=== PATIENT | female | born 1940 | race Caucasian/White ===

== ENCOUNTER → 2016-12-22 | Outpatient (CLI) | payer MEDICARE, BC ==
--- NOTE | 2016-12-22 14:29 | US ---
EXAMINATION TYPE: US venous doppler duplex LE BI DATE OF EXAM: 12/22/2016 2:00 PM COMPARISON: Right lower extremity venous ultrasound March 08, 2013. CLINICAL HISTORY: R22.42 swelling of limb. SIDE PERFORMED: Bilateral TECHNIQUE: The lower extremity deep venous system is examined utilizing real time linear array sonog sridevi with graded compression, doppler sonography and color-flow sonography. VESSELS IMAGED: External Iliac Vein (EIV) Common Femoral Vein Deep Femoral Vein Greater Saphenous Vein * Femoral Vein Popliteal Vein Small Saphenous Vein * Proximal Calf Veins (* superficial vessels) Patient of large body habitus. Right Leg: Negative for DVT Left Leg: Negative for DVT Exam slightly suboptimal secondary to patient's large body habitus per technologist. Grayscale, color doppler, spectral doppler imaging performed of the deep veins of the lower extremities. There is no rmal flow, compressibility, vascular waveforms. IMPRESSION: No ultrasound evidence for acute DVT in either lower extremity.
--- NOTE | 2016-12-23 10:46 | ECHOF ---
Referral Reason:R6.02 sob,M79.89 LE swelling MEASUREMENTS -------- HEIGHT: 165.1 cm WEIGHT: 99.3 kg BP: RVIDd: 4.0 cm (< 3.3) IVSd: 1.1 cm (0.6 - 1.1) LVIDd: 4.5 cm (3.9 - 5.3) LVPWd: 1.1 cm (0.6 - 1.1) IVSs: 1.8 cm LVIDs: 3.0 cm LVPWs: 1.7 cm LAESV Index (A-L): 24.17 ml/m Ao Diam: 4.2 cm (2.0 - 3.7) AV Cusp: 1.6 cm (1.5 - 2.6) LA Diam: 2.6 cm (2.7 - 3.8) MV EXCURSION: 23.601 mm (> 18.000) MV EF SLOPE: 119 mm/s (70 - 150) EPSS: 0.5 cm MV E Jeffry: 0.85 m/s MV DecT: 259 ms MV A Jeffry: 0.72 m/s MV E/A Ratio: 1.19 RAP: 5.00 mmHg RVSP: 18.05 mmHg FINDINGS -------- Resting bradycardia (HR<60bpm). This was a technically difficult study with suboptimal views. The left ventricular size is normal. There is borderline concentric left ventricular hypertrophy. Overall left ventricular systolic function is normal with, an EF between 55 - 60 %. The right ventricle is moderately enlarged. The right ventricular systolic function is normal. Normal LA size by volume 22+/-6 ml/m2. The right atrium is normal in size. 1.5mg of Definity was utilized for enhancement of images Aortic valve is trileaflet and is mildly thickened. Trace amount of aortic regurgitation. There is no evidence of aortic stenosis. The mitral valve leaflets are mildly thickened. There is trace mitral regurgitation. Trace tricuspid regurgitation present. Right ventricular systolic pressure is normal at < 35 mmHg. There is no evidence of pulmonary hypertension. Moderate pulmonic regurgitation. The aortic root size is normal. Normal inferior vena cava with normal inspiratory collapse consistent with estimated right atrial pressure of 5 mmHg. The pericardium is normal. There is no pericardial effusion. CONCLUSIONS -------- 1. Resting bradycardia (HR<60bpm). 2. Trace amount of aortic regurgitation. 3. The mitral valve leaflets are mildly thickened. 4. There is trace mitral regurgitation. 5. Trace tricuspid regurgitation present. 6. Right ventricular systolic pressure is normal at < 35 mmHg. 7. There is no evidence of pulmonary hypertension. 8. Moderate pulmonic regurgitation. 9. The aortic root size is normal. 10. There is no pericardial effusion. 11. This was a technically difficult study with suboptimal views. 12. The left ventricular size is normal. 13. There is borderline concentric left ventricular hypertrophy. 14. Overall left ventricular systolic function is normal with, an EF between 55 - 60 %. 15. The right ventricle is moderately enlarged. 16. Normal LA size by volume 22+/-6 ml/m2. 17. 1.5mg of Definity was utilized for enhancement of images 18. Aortic valve is trileaflet and is mildly thickened. FLASH DESIGNER: Hamlet Thorne RDCS
== END | disposition home or self-care (01) ==
LOC: RADUSMAIN 12:57
PROVIDERS: ATTEND Family Medicine
DX: I08.0 Rheumatic disorders of both mitral and aortic valves (principal); R00.1 Bradycardia, unspecified; R22.43 Localized swelling, mass and lump, lower limb, bilateral; Z88.2 Allergy status to sulfonamides; Z88.5 Allergy status to narcotic agent
CPT/HCPCS: 93970; C8929; Q9957; 93306

== ENCOUNTER → 2017-01-03 | Outpatient (CLI) | payer MEDICARE, BC ==
--- NOTE | 2017-01-03 07:50 | US ---
EXAMINATION TYPE: US carotid duplex BILAT DATE OF EXAM: 01/03/2017 COMPARISON: NONE CLINICAL HISTORY: 76-year-old female with Facial Numbness R20.2. Left facial numbness . TECHNIQUE: Carotid duplex ultrasound examination. Indirect Doppler criteria was utilized. FINDINGS: The left ICA is tortuous. Very minimal atherosclerotic changes are noted at the bifurcations. EXAM MEASUREMENTS: RIGHT: Peak Systolic Velocity (PSV) cm/sec ----- Right CCA: 83.3 ----- Right ICA: 96.5 ----- Right ECA: 111.9 ICA/CCA ratio: 1.2 RIGHT: End Diastole cm/sec ----- Right CCA: 22.7 ----- Right ICA: 32.6 ----- Right ECA: 20.5 LEFT: Peak Systolic Velocity (PSV) cm/sec ----- Left CCA: 75.6 ----- Left ICA: 74.7 ----- Left ECA: 103.5 ICA/CCA ratio: 1.0 LEFT: End Diastole cm/sec ----- Left CCA: 23.2 ----- Left ICA: 28.5 ----- Left ECA: 23.2 VERTEBRALS (direction of flow): Right Vertebral: Antegrade Left Vertebral: Antegrade Rhythm: Normal IMPRESSION: No hemodynamically significant stenosis appreciated in either internal carotid artery. Criteria for Assigning % of Stenosis / Diameter reduction (Estimation based on the indirect measurements of the internal carotid artery velocities (ICA PSV). 1. Normal (no stenosis)=ICA PSV < 125 cm/s: ratio < 2.0: ICA EDV<40 cm/s. 2. Less than 50% stenosis=ICA PSV < 125 cm/s: ratio < 2.0: ICA EDV<40 cm/s. 3. 50 to 69% stenosis=ICA PSV of 125 to 230 cm/s: ration 2.0 ? 4.0: ICA EDV 40-100 cm/s. 4. Greater than 70% stenosis to near occlusion= ICA PSV > 230 cm/s: ratio > 4.0: ICA EDV > 100 cm/s. 5. Near occlusion= ICA PSV velocities may be low or undetectable: variable ratio and ICA EDV. 6. Total occlusion=unable to detect flow.
--- NOTE | 2017-01-03 10:23 | MR ---
EXAMINATION TYPE: MR brain wo con DATE OF EXAM: 01/03/2017 COMPARISON: NONE HISTORY: facial numbness, dyspnea TECHNIQUE: Multiplanar, multisequence images of the brain and brainstem is performed without intravenous contras t. FINDINGS: Diffusion weighted images demonstrate no evidence of a recent infarct or other diffusion ab normality. There is no extra-axial fluid collection. Few foci of T2/FLAIR hyperintensity are scatter ed throughout the periventricular and subcortical white matter. The ventricular system and cisternal spaces are normal in size and appearance. The brain volume is age appropriate. Midline structures demonstrate normal morphology other than a partially empty sella turcica. The hobbies and crafts sales representative niocervical junction appears within normal limits. Post contrast images demonstrate no abnormal enha ncement. The dural venous sinuses appear patent. The visualized sinuses are clear and the globes are intact. IMPRESSION: 1. No evidence of acute infarct or intracranial hemorrhage. 2. Mild burden of nonspecific white matter changes, likely on the basis of chronic microangiopathy.
== END | disposition home or self-care (01) ==
LOC: RADUSWWP 06:50
PROVIDERS: ATTEND Family Medicine
DX: R90.82 White matter disease, unspecified (principal); R20.0 Anesthesia of skin; R06.00 Dyspnea, unspecified; Z88.2 Allergy status to sulfonamides; Z88.5 Allergy status to narcotic agent
CPT/HCPCS: 70551; 93880

== ENCOUNTER → 2018-03-16 | Outpatient (CLI) | payer MEDICARE, BC ==
--- NOTE | 2018-03-16 14:42 | BD ---
EXAMINATION TYPE: Axial Bone Density DATE OF EXAM: 03/16/2018 CLINICAL HISTORY: Height: 63.5 Weight: 221 pounds FRAX RISK QUESTIONS: Alcohol (3 or more units per day): no Family History (Parent hip fracture): no Glucocorticoids (More than 3mos): yes (Ex: prednisone, prednisolone, methylprednisolone, dexamethasone, and hydrocortisone). History of Fracture in Adulthood: no Secondary Osteoporosis: 1. Type 1 Diabetes: no 2. Hyperthyroidism: no 3. Menopause before 45: yes, hysterectomy 4. Malnutrition: no 5. Chronic liver disease: no Rheumatoid Arthritis: no Current Tobacco Use: no RISK FACTORS HISTORY OF: Family History of Osteoporosis: possibly maternal great aunt Active: somewhat Diet low in dairy products/other sources of calcium: at least one serving a day "most of the time" Postmenopausal woman: yes Take estrogen and/or progesterone medications: not now How long: about 4 months Lost more than 2 inches in height since high school: unsure, states height was about 66 inches at one time Frequent falls: no Poor Health: patient does not feel in good health Hyperparathyroidism: no Adrenal Insufficiency: no MEDICATIONS: Prednisone or other steroids: yes How Long: about 4 years Thyroid Medications: no Osteoporosis Medications: no Additional Medications: Vitamin D Additional History: knee replacement, hx skin CA, back injections for pain, "heart problem" EXAM MEASUREMENTS: Bone mineral densitometry was performed using the Firma[employer] System. Bone mineral density as measured about the Lumbar spine is: ----- L1-L4(G/cm2): 1.412 T Score Values are as follows: ----- L2: 2.5 ----- L3: 2.0 ----- L4: 1.1 ----- L1-L4: 1.9 Bone mineral density not previously done at this facility; done elsewhere Bone mineral density about the R hip (g/cm2): 0.958 Bone mineral density about the L hip (g/cm2): 0.904 T Score values are as follows: -----R Neck: -0.6 -----L Neck: -1.0 -----R Total: 0.0 -----L Total: -0.1 Bone mineral density not previously done at this facility; done elsewhere IMPRESSION: No evidence for osteoporosis or osteopenia. NOTE: T-SCORE=SD OF THE YOUNG ADULT MEAN.
--- NOTE | 2018-03-17 14:19 | MM ---
Reason for exam: screening (asymptomatic). Last mammogram was performed 1 year and 4 months ago. Physical Findings: A clinical breast exam by your physician is recommended on an annual basis and results should be correlated with mammographic findings. MG 3D Screening Mammo W/Cad Bilateral CC and MLO view(s) were taken. Prior study comparison: November 03, 2016, mammogram. September 12, 2015, mammogram. There are scattered fibroglandular densities. No suspicious abnormality. No significant changes when compared with prior studies. ASSESSMENT: Negative, BI-RAD 1 RECOMMENDATION: Routine screening mammogram of both breasts in 1 year.
== END | disposition home or self-care (01) ==
LOC: RADMAMWWP 11:39
PROVIDERS: ATTEND Family Medicine
DX: Z12.31 Encounter for screening mammogram for malignant neoplasm of breast (principal); Z13.820 Encounter for screening for osteoporosis
CPT/HCPCS: 77063; 77067; 77080

== ENCOUNTER → 2020-01-16 | Outpatient (CLI) | payer MEDICARE, BC | END | disposition home or self-care (01) | LOC: RADMRIMAIN 17:44 | PROVIDERS: ATTEND Family Medicine | DX: Z53.9 Procedure and treatment not carried out, unspecified reason (principal) ==

== ENCOUNTER 2021-02-10 10:55 | Day surgery (SDC) | payer MEDICARE, BC ==
[2021-02-09 09:22] VITALS: BMI 36.6
[~2021-02-10 10:55] MED LIST: ALPRAZolam 0.25 MG TAB PO PRN; ALPRAZolam 0.5 MG TAB PO PRN; ASPIRIN 325 MG TAB PO STA; ATORVASTATIN 80 MG TAB PO STA; NITROGLYCERIN SL TABS 0.4 MG TAB SUBLINGUAL PRN; SODIUM CHLORIDE 0.9% 1,000 ML in EMPTY BAG 1 BAG IV SCH
[2021-02-10 11:42] VITALS: RESP 18; TEMP 98.6
[2021-02-10] MEDS ORDERED: VERAPAMIL 2.5 MG/ML 2 ML AMP ONE (13:10)
[2021-02-10] MEDS ORDERED: LIDOCAINE 1% INJ 10MG/ML (20 ML MDV) ONE (13:10)
[2021-02-10] MEDS ORDERED: fentaNYL (PF) 50 MCG/ML 2 ML AMP ONE (13:17)
[2021-02-10] MEDS ORDERED: LIDOCAINE 1% INJ 10MG/ML (20 ML MDV) SQ ONE (13:17)
[2021-02-10] MEDS ORDERED: fentaNYL (PF) 50 MCG/ML 2 ML AMP IV ONE ×2 (13:19)
[2021-02-10] MEDS ORDERED: MIDAZOLAM 2 MG/2 ML VIAL IV ONE (13:19)
[2021-02-10] MEDS ORDERED: VERAPAMIL SYRINGE (5 MG/10 ML) INTRAARTER ONE (13:24)
[2021-02-10] MEDS ORDERED: HEPARIN SODIUM 1,000 UN/ML (10ML VL) ONE (13:37)
[2021-02-10] MEDS ORDERED: IOPAMIDOL-370 125ML BTL INJ ONE (13:48)
[2021-02-10] MEDS ORDERED: RX INFO: IV CONTRAST WAS GIVEN 1 EACH MISC MISCELLANE PRN (13:53)
[2021-02-10 13:59] LABS: O2 Sat Blood Gas 88.5 %
[2021-02-10] MEDS ORDERED: SODIUM CHLORIDE 0.9% 1,000 ML IV SCH (14:00)
[2021-02-10 14:02] LABS: O2 Sat Blood Gas 63.1 %
[2021-02-10 14:09] LABS: O2 Sat Blood Gas 62.6 %
[2021-02-10 17:04] VITALS: BP 146/82; PULSE 67
--- NOTE | 2021-02-10 20:42 | CC ---
CARDIAC CATHETERIZATION REPORT Mrs. Donahue is a 80-year-old female who presented with symptoms of progressive dyspnea and worsening peripheral edema. Her myocardial perfusion imaging that revealed evidence of inducible ischemia involving the anterior wall. In view of that, recommendation regarding cardiac catheterization. The procedure as well as the risks and the complications were discussed with the patient who is in full understanding and agreement. PROCEDURE DESCRIPTION: Patient was brought to the label sewer in a fasting, semi-sedated state after receiving fentanyl and Benadryl and achieving moderate conscious sedated state. Using Xylocaine anesthesia and Seldinger technique, a 6-Polish sheath was introduced in the right radial artery. The right basilic vein catheter was exchanged to a 6-Polish sheath and subsequently right heart catheterization was performed using Auburn-Kenn catheter. Multiple pressure and samples were obtained. Cardiac output by thermodilution was calculated. Following that, selective right and left coronary angiography performed using 5-Polish 3.5 bend right and left Judkin's catheter. Multiple views of the coronary arteries including hemiaxial views were obtained. The 5-Polish tight pigtail catheter was introduced into the left ventricle and left ventricular end- diastolic pressure was calculated. Following that, catheter and sheath were removed. Hemostasis was obtained with deployment of a TR band and compression of the right brachial area. There was no immediate complication. The patient received 5000 units of intravenous heparin as well as intra-arterial verapamil. FINDINGS: LEFT MAIN: This is a large-sized vessel trifurcating into left circumflex, left anterior descending coronary artery, and ramus intermedius. Left main coronary artery has no evidence of high-grade stenosis. LEFT ANTERIOR DESCENDING CORONARY ARTERY: Left anterior descending artery is a large- sized vessel reaching toward the apex with a wraparound apex segment giving rise to a small diagonal branch. The left anterior descending artery as well as branches have no evidence of obstructive coronary artery disease. LEFT CIRCUMFLEX: This is a nondominant vessel giving rise to one obtuse marginal branch. The left circumflex as well as branches have no evidence of obstructive coronary artery disease. RAMUS INTERMEDIUS: This is a large-sized vessel reaching to the apical lateral wall. The ramus intermedius as well as branches have no evidence of obstructive coronary artery disease. RIGHT CORONARY ARTERY: This is a large dominant vessel bifurcating into PDA and posterolateral segment and branches. The right coronary artery as well as branches have no evidence of obstructive coronary artery disease. HEMODYNAMICS: The pulmonary artery systolic pressure of 42-44 with a diastolic of 12 and a mean of 23 mmHg. Pulmonary capillary wedge pressure A-wave of 8, V-wave of 6 with a mean of 4 mmHg. Right ventricular systolic pressure of 44 with an end-diastolic of 15 mmHg. Right atrial A-wave of 8 and V-wave of 6 with a mean of 4 mmHg. There was no gradient across the aortic valve. The left ventricular end-diastolic pressure is 10-14 mmHg. Cardiac output by thermodilution 4.2 L/minute. Cardiac output by Madan 5.98 L/minute. Arterial sat 89%, PA sat 63%, RA sat 63%. CONCLUSION: 1. Normal coronary arteries. 2. Mild pulmonary hypertension. RECOMMENDATIONS: In view of findings and anatomy, I recommend continued medical therapy with aggressive coronary risk modifications that have been initiated. Those findings and recommendations were discussed with the patient her family, and they are full understanding and agreement. Duration of sedation is 29 minutes. MMANTWONL / CHERRIN: [id number] / MTDSaran
[2021-02-10] MEDS ORDERED: MONTELUKAST 10 MG TAB PO SCH (21:00)
[2021-02-11] MEDS ORDERED: LOSARTAN 25 MG TAB PO SCH (09:00)
== END 2021-02-10 17:04 | disposition home or self-care (01) ==
LOC: CATHCVL 10:55
PROVIDERS: ATTEND Internal Medicine Interventional Cardiology
DX: I27.20 Pulmonary hypertension, unspecified (principal)
CPT/HCPCS: 93460; 85018; 82810; C1894; C1751; C1769; J2250; J2001; J3010; J1644; Q9967

== ENCOUNTER → 2021-10-29 | Outpatient (CLI) | payer MEDICARE, BC ==
--- NOTE | 2021-10-30 08:22 | MM ---
Reason for Exam: Screening (asymptomatic). Last mammogram was performed 3 year(s) and 8 month(s) ago. Patient History: Menarche at age 11. First Full-Term at age 20. Maternal aunt had breast cancer, age 70. Risk Values: Rox 5 year model risk: 1.4%. NCI Lifetime model risk: 2.5%. Prior Study Comparison: 09/12/2015 Screening Mammogram, Unknown. 11/03/2016 Screening Mammogram, Unknown. 03/16/2018 Bilateral Screening Mammogram, [facility]. Tissue Density: The breast tissue is almost entirely fat. Findings: Analyzed By CAD. There is no suspicious group of microcalcifications or new suspicious mass in either breast. Overall Assessment: Negative, BI-RAD 1 Management: Screening Mammogram of both breasts in 1 year. A clinical breast exam by your physician is recommended on an annual basis and results should be correlated with mammographic findings. Electronically signed and approved by: Brent Veras DO
== END | disposition home or self-care (01) ==
LOC: RADMAMWWP 13:07
PROVIDERS: ATTEND Family Medicine
DX: Z12.31 Encounter for screening mammogram for malignant neoplasm of breast (principal); Z80.3 Family history of malignant neoplasm of breast
CPT/HCPCS: 77063; 77067

== ENCOUNTER → 2022-11-12 | Outpatient (CLI) | payer MEDICARE, BC ==
[2022-11-12 16:51] LABS: Blood Urea Nitrogen 28.6 mg/dL (9.0-27.0); Carbon Dioxide 33.3 mmol/L (21.6-31.8); Chloride 98 mmol/L (96-109); Potassium 4.1 mmol/L (3.5-5.5); Sodium 141 mmol/L (135-145)
== END | disposition home or self-care (01) ==
LOC: LABWHC1 10:46
PROVIDERS: ATTEND Internal Medicine Interventional Cardiology
DX: I48.11 Longstanding persistent atrial fibrillation (principal)
CPT/HCPCS: 36415; 80051; 82565; 84520

== ENCOUNTER → 2022-11-23 | Day surgery (SDC) | payer MEDICARE, BC ==
[2022-11-16 12:42] VITALS: BMI 31.6
[~2022-11-23] MED LIST changes: -ALPRAZolam 0.25 MG TAB PO PRN; -ALPRAZolam 0.5 MG TAB PO PRN; +AMIODARONE 200 MG TAB PO SCH; +APIXABAN 5 MG TAB PO SCH; -ASPIRIN 325 MG TAB PO STA; -ATORVASTATIN 80 MG TAB PO STA; +BENZOCAINE SPRAY 1 CAN TOPICAL ONE; +BUDESONIDE 0.5 MG/2 ML NEBU INHALATION SCH; +FUROSEMIDE 20 MG TAB PO SCH; +IPRATROPIUM-ALBUTEROL 3 ML NEB INHALATION SCH; +LACTATED RINGERS 1,000 ML IV ONE; +LIDOCAINE 2% INJ 20 MG/ML (2 ML VIAL) ONE; +METOPROLOL TARTRATE 50 MG TAB PO SCH; +MONTELUKAST 10 MG TAB PO SCH; -NITROGLYCERIN SL TABS 0.4 MG TAB SUBLINGUAL PRN; +POTASSIUM CHLORIDE ER 10 MEQ TAB.ER.PRT PO SCH; +PROPOFOL 10 MG/ML 20 ML VIAL IV ONE; +SODIUM CHLORIDE 0.9% 1,000 ML IV SCH; -SODIUM CHLORIDE 0.9% 1,000 ML in EMPTY BAG 1 BAG IV SCH
--- NOTE | 2022-11-23 09:37 | P.PCN ---
Date of Procedure: 11/23/22 Description of Procedure: Indication: Atrial fibrillation Procedure Description: After explaining the procedure to the patient, it's risk and complications, blood pressure, heart rate and O2 saturation were monitored. The throat was sprayed with Cetacaine. Patient received sedation per anesthesia department. The probe was introduced into the esophagus without difficulty. Images were obtained. Following that, the probe was removed. There was no immediate complication. Findings: Left atrial is dilated, right atrium is dilated. Left atrial appendage is normal. Left ventricle systolic function is severely impaired with ejection fraction of 25-30% is global hypokinesis. The aortic valve reveals fib rocalcific changes of the aortic cusps was preserved opening, mitral annulus calcification was noted. Descending thoracic aorta revealed mild calcifications. No pericardial effusion was noted. Contrast bubble study revealed no shunting across the intra-atrial septum. Doppler: Pulse wave and color Doppler were obtained, in revealed moderate mitral with mild tricuspid and aortic regurgitation, there was no shunting by color Doppler study Conclusion: 1. Biatrial enlargement with normal appearance of the left atrial appendage 2. Severely impaired left ventricle systolic function was global hypokinesis 3. Moderate mitral with mild tricuspid regurgitation and mild aortic regurgitation 4. Mild atherosclerotic changes of the descending thoracic aorta 5. No shunting across the intra-atrial septum Cardioversion: After obtaining KELLY and sedated state. Anesthesia department synchronized biphasic cardioversion using 150 J and subsequently 200 J was successful in restoring sinus mechanism, there was no immediate complications.
[2022-11-23 09:47] VITALS: TEMP 98
[2022-11-23 10:21] VITALS: RESP 18
[2022-11-23 10:45] VITALS: BP 134/61; PULSE 40
== END | disposition home or self-care (01) ==
LOC: OR 07:45
PROVIDERS: ATTEND Internal Medicine Interventional Cardiology
DX: I48.91 Unspecified atrial fibrillation (principal); I08.2 Rheumatic disorders of both aortic and tricuspid valves; I10 Essential (primary) hypertension; Z88.2 Allergy status to sulfonamides; Z79.01 Long term (current) use of anticoagulants; Z79.899 Other long term (current) drug therapy
CPT/HCPCS: 94640; 93312; 93320; 93325; 92960; J2704; J2001

== ENCOUNTER 2022-12-10 10:43 | Emergency (ER) | payer MEDICARE, BC ==
--- NOTE | 2022-12-10 11:09 | ED ---
Head Injury HPI - General Chief complaint: Head Injury Stated complaint: Fall Time Seen by Provider: 12/10/22 10:52 Source: patient, RN notes reviewed Mode of arrival: ambulatory Limitations: no limitations - History of Present Illness Initial comments: This is an 82-year-old female who presents to the emergency department for a head injury. Patient states that she was putting up decorations when she tripped and fell, hitting her head on the coffee table. States that she hit the left side of her head. Denies any loss of consciousness. She does take Eliquis for atrial fibrillation. She does currently have a headache, however she took Tylenol prior to arrival which was helpful. Denies any associated nausea. States that she called the nurse with [facility], who advised she come to the emergency department for evaluation. Denies any fevers, chills, sore throat, cough, dyspnea, chest pain, palpitations, abdominal pain, nausea, vomiting, or diarrhea. MD Complaint: head injury - Related Data Home Medications Medication Instructions Recorded Confirmed Budesonide [Pulmicort] 0.5 mg INHALATION BID 02/09/21 11/16/22 Furosemide [Lasix] 40 mg PO BID 02/09/21 11/16/22 Ipratropium-Albuterol Nebulize 3 ml INHALATION QID 02/09/21 11/16/22 [Duoneb 0.5 mg-3 mg/3 ml Soln] Meloxicam [Mobic] 15 mg PO DAILY 02/09/21 11/16/22 Montelukast [Singulair] 10 mg PO HS 02/09/21 11/16/22 Potassium Chloride 10 meq PO DIRECTED 02/09/21 11/16/22 Apixaban [Eliquis] 5 mg PO BID 11/16/22 11/16/22 Metoprolol Tartrate [Lopressor] 50 mg PO BID 11/16/22 11/16/22 Previous Rx's Medication Instructions Recorded Amiodarone [Cordarone] 200 mg PO DAILY #0 11/23/22 Allergies/Adverse reactions: Allergies Allergy/AdvReac Type Severity Reaction Status Date / Time Sulfa (Sulfonamide Allergy Unknown skin red Verified 12/10/22 10:48 Antibiotics) like a sunburn Review of Systems ROS Statement: Those systems with pertinent positive or pertinent negative responses have been documented in the HPI. ROS Other: All systems not noted in ROS Statement are negative. Past Medical History Past Medical History: Atrial Fibrillation, Asthma, Cancer, COPD, Hypertension, Osteoarthritis (OA) Additional Past Medical History / Comment(s): basal & melanoma skin cancer, spot on kidney (had a little radiation because it can't be bx'd)-watched by oncologist, oxygen at 2 L at HS History of Any Multi-Drug Resistant Organisms: None Reported Past Surgical History: Appendectomy, Cholecystectomy, Joint Replacement, Tonsillectomy Additional Past Surgical History / Comment(s): rectocele and cystocele, total right knee, cataracts Past Anesthesia/Blood Transfusion Reactions: No Reported Reaction, Motion Sickness Past Psychological History: No Psychological Hx Reported Smoking Status: Former smoker Past Alcohol Use History: None Reported Past Drug Use History: None Reported - Past Family History Son(s) Family Medical History: Cancer Additional Family Medical History / Comment(s): throat cancer General Exam Limitations: no limitations General appearance: alert, in no apparent distress Head exam: Present: other (Hematoma to the left parietal region. No overlying abrasions or lacerations.) Eye exam: Present: normal appearance, PERRL, EOMI. Absent: scleral icterus, conjunctival injection, periorbital swelling Respiratory exam: Present: normal lung sounds bilaterally. Absent: respiratory distress, wheezes, rales, rhonchi, stridor Cardiovascular Exam: Present: regular rate, normal rhythm, normal heart sounds. Absent: systolic murmur, diastolic murmur, rubs, gallop, clicks Neurological exam: Present: alert, oriented X3, CN II-XII intact Psychiatric exam: Present: normal affect, normal mood Skin exam: Present: warm, dry, intact, normal color. Absent: rash Course Vital Signs 12/10/22 12/10/22 10:46 12:41 Temperature 98.4 F 98.2 F Pulse Rate 52 L 61 Respiratory 18 18 Rate Blood Pressure 139/63 131/87 O2 Sat by Pulse 99 99 Oximetry Medical Decision Making - Medical Decision Making This is an 82-year-old female who presents to the emergency department for a head injury. Was pt. sent in by a medical professional or institution? @ -No Did you speak to anyone other than the patient for history? @ -No Did you review nursing and triage notes? @ -Yes, and I agree, it is accurate with regards to the patient's symptoms. Were old charts reviewed? @ -No Differential Diagnosis? @ -Differential Diagnosis Head Injury: Contusion, hematoma, intracranial hemorrhage, skull fracture, whiplash, concussion, this is not meant to be an all-inclusive list. EKG interpreted by me (3pts min.)? @ -Not obtained X-rays interpreted by me (1pt min.)? @ -Not obtained CT interpreted by me (1pt min.)? @ -Computed tomography scan of the brain and c-spine obtained. My interpretation identifies no evidence of an acute intracranial hemorrhage, skull fracture, or cervical spine fracture. U/S interpreted by me (1pt. min.)? @ -Not obtained What testing was considered but not performed? (CT, X-rays, U/S, labs)? Why? @ -None What meds were considered but not given? Why? @ -None Did you discuss the management of the patient with other professionals? @ -No Did you reconcile home meds? @ -No Was smoking cessation discussed for >3mins.? @ -No Was critical care preformed (if so, how long)? @ -No Were there social determinants of health that impacted care today? How? (Homelessness, low income, unemployed, alcoholism, drug addiction, transportation, low edu. Level, literacy, decrease access to med. care, [facility], rehab)? @ -No Was there de-escalation of care discussed even if they declined? (Discuss DNR or withdrawal of care, Hospice)? @ -No What co-morbidities impacted this encounter? (DM, HTN, Smoking, COPD, CAD, Cancer, CVA, Hep., AIDS, mental health diagnosis, sleep apnea, morbid obesity)? @ -Atrial fibrillation Was patient admitted / discharged? @ -Discharged. Because the patient is on Eliquis, CT scan of the brain obtained revealing no acute findings. Patient declined the need for any pain medication in the emergency department. Advised Tylenol as needed for pain relief at home and follow up with her primary care provider. Undiagnosed new problem with uncertain prognosis? @ -None Drug Therapy requiring intensive monitoring for toxicity (Heparin, Nitro, Insulin, Cardizem)? @ -None Were any procedures done? @ -None Diagnosis/symptom? @ -Closed head injury Acute, or Chronic, or Acute on Chronic? @ -Acute Uncomplicated (without systemic symptoms) or Complicated (systemic symptoms)? @ -Uncomplicated Side effects of treatment? @ -None Exacerbation, Progression, or Severe Exacerbation] @ -Not applicable Poses a threat to life or bodily function? @ -No Return precautions reviewed in depth, the patient is instructed to return to the emergency department with any new, worsening, or concerning symptoms. Patient verbalized understanding. This case was discussed in detail with the attending ED physician, Dr. Dixon. Presentation, findings, and treatment plan discussed in detail as well. - Radiology Data Radiology results: report reviewed, image reviewed Disposition Clinical Impression: Closed head injury, Hematoma of scalp Disposition: HOME SELF-CARE Instructions (If sedation given, give patient instructions): Head Injury (ED) Additional Instructions: Return to the emergency department with any new, worsening, or concerning symptoms. Continue to take Tylenol as needed for pain relief. Follow up with your primary care provider in 1-2 days. Is patient prescribed a controlled substance at d/c from ED?: No Referrals: Martín Clark DO [Primary Care Provider] - 1-2 days
--- NOTE | 2022-12-10 12:02 | CT ---
EXAMINATION TYPE: CT brain laina enrique DATE OF EXAM: 12/10/2022 COMPARISON: None HISTORY: Fall on thinners CT DLP: 1426.[address] of the brain was performed. The ventricles, basal cisterns and sulci overlying the cerebral convexities demonstrate mild enlargem ent. There is no evidence for intracranial hemorrhage or sulcal effacement. There is decreased attenuatio n about the periventricular white matter and deep white matter of both cerebral hemispheres, compatib le with chronic small vessel ischemia. No mass effects are seen. If symptoms persist consider MRI. Osseous calvarium is intact. Left parietal-occipital scalp hematoma. IMPRESSION: 1. Age related atrophic and chronic small vessel ischemic change without acute intracranial process seen at this time. CT Cervical Spine: Unenhanced CT of the cervical spine was performed with bone and soft tissue window settings submitted . Coronal and sagittal reconstruction is obtained. There is normal alignment and prevertebral soft tissues. No evidence for acute cervical fracture . Scattered degenerative disc disease and spondylosis. Biapical scarring. IMPRESSION: 1. No evidence for acute fracture or subluxation of the cervical spine.
[2022-12-10 15:27] VITALS: BP 131/87; PULSE 61; RESP 18; TEMP 98.2
== END 2022-12-10 12:45 | disposition home or self-care (01) ==
LOC: EC 10:43
DX: S00.03XA Contusion of scalp, initial encounter (principal); I10 Essential (primary) hypertension; J45.909 Unspecified asthma, uncomplicated; I48.91 Unspecified atrial fibrillation; Z79.01 Long term (current) use of anticoagulants; Z79.51 Long term (current) use of inhaled steroids; Z79.899 Other long term (current) drug therapy; Z88.2 Allergy status to sulfonamides; Z87.891 Personal history of nicotine dependence; W01.190A Fall on same level from slipping, tripping and stumbling with subsequent striking against furniture, initial encounter
CPT/HCPCS: 70450; 72125; 99283

== ENCOUNTER → 2022-12-27 | Outpatient (CLI) | payer MEDICARE, BC ==
[2022-12-27 13:30] LABS: African American GFR (CKD) 72 (>60 ml/min/1.73 sqM); Blood Urea Nitrogen 25 mg/dL (7-17); Calcium 8.9 mg/dL (8.4-10.2); Chloride 97 mmol/L (98-107); Glucose 97 mg/dL (74-99); Non-African American GFR(CKD) 63 (>60 ml/min/1.73 sqM); Potassium 4.5 mmol/L (3.5-5.1); Sodium 140 mmol/L (137-145)
[2022-12-27 13:36] LABS: NT-Pro-B-Type Natriuretic Pept 850 pg/mL
[2022-12-27 13:37] LABS: Anion Gap 8 mmol/L; Carbon Dioxide 35 mmol/L (22-30)
== END | disposition home or self-care (01) ==
LOC: LABWHC1 12:14
PROVIDERS: ATTEND Internal Medicine Interventional Cardiology
DX: I42.8 Other cardiomyopathies (principal); I50.22 Chronic systolic (congestive) heart failure
CPT/HCPCS: 36415; 80048; 83880

== ENCOUNTER 2023-02-13 07:14 | Inpatient (IN) | payer MEDICARE, BC ==
[2023-02-13] MEDS ORDERED: IPRATROPIUM-ALBUTEROL 3 ML NEB INHALATION STA (07:28)
--- NOTE | 2023-02-13 07:30 | ED ---
General Adult HPI - General Chief complaint: Shortness of Breath Stated complaint: Dyspnea Time Seen by Provider: 02/13/23 07:22 Source: patient, RN notes reviewed Mode of arrival: wheelchair Limitations: no limitations - History of Present Illness Initial comments: Patient is a pleasant 82-year-old female presenting to the emergency Department with complaints of shortness of breath. Onset of symptoms was last night. Patient does have history of COPD. Patient does have some leg swelling however this is a chronic problem for her. No calf pain. Patient denies chest pain. Patient does have some discomfort of her left shoulder region. No significant cough. No fever. - Related Data Home Medications Medication Instructions Recorded Confirmed Budesonide [Pulmicort] 0.5 mg INHALATION BID 02/09/21 11/16/22 Furosemide [Lasix] 40 mg PO BID 02/09/21 11/16/22 Ipratropium-Albuterol Nebulize 3 ml INHALATION QID 02/09/21 11/16/22 [Duoneb 0.5 mg-3 mg/3 ml Soln] Meloxicam [Mobic] 15 mg PO DAILY 02/09/21 11/16/22 Montelukast [Singulair] 10 mg PO HS 02/09/21 11/16/22 Potassium Chloride 10 meq PO DIRECTED 02/09/21 11/16/22 Apixaban [Eliquis] 5 mg PO BID 11/16/22 11/16/22 Metoprolol Tartrate [Lopressor] 50 mg PO BID 11/16/22 11/16/22 Previous Rx's Medication Instructions Recorded Amiodarone [Cordarone] 200 mg PO DAILY #0 11/23/22 Allergies Allergy/AdvReac Type Severity Reaction Status Date / Time Sulfa (Sulfonamide Allergy Unknown skin red Verified 02/13/23 07:18 Antibiotics) like a sunburn Review of Systems ROS Statement: Those systems with pertinent positive or pertinent negative responses have been documented in the HPI. ROS Other: All systems not noted in ROS Statement are negative. Constitutional: Denies: fever Eyes: Denies: eye pain ENT: Denies: ear pain Respiratory: Reports: as per HPI, dyspnea Cardiovascular: Denies: chest pain Endocrine: Reports: fatigue Gastrointestinal: Denies: abdominal pain Genitourinary: Denies: dysuria Past Medical History Past Medical History: Atrial Fibrillation, Asthma, Cancer, COPD, Hypertension, Osteoarthritis (OA) Additional Past Medical History / Comment(s): basal & melanoma skin cancer, spot on kidney (had a little radiation because it can't be bx'd)-watched by oncologist, oxygen at 2 L at HS History of Any Multi-Drug Resistant Organisms: None Reported Past Surgical History: Appendectomy, Cholecystectomy, Joint Replacement, Tonsillectomy Additional Past Surgical History / Comment(s): rectocele and cystocele, total right knee, cataracts Past Anesthesia/Blood Transfusion Reactions: No Reported Reaction, Motion Si ckness Past Psychological History: No Psychological Hx Reported Smoking Status: Former smoker Past Alcohol Use History: None Reported Past Drug Use History: None Reported - Past Family History Son(s) Family Medical History: Cancer Additional Family Medical History / Comment(s): throat cancer General Exam Limitations: no limitations General appearance: alert Head exam: Present: normocephalic Eye exam: Present: normal appearance Neck exam: Present: normal inspection Respiratory exam: Present: wheezes, rales Cardiovascular Exam: Present: regular rate, normal rhythm, systolic murmur GI/Abdominal exam: Present: soft. Absent: tenderness Extremities exam: Present: pedal edema. Absent: calf tenderness Neurological exam: Present: alert Psychiatric exam: Present: normal affect, normal mood Skin exam: Present: normal color Course Vital Signs 02/13/23 02/13/23 02/13/23 07:16 07:43 07:59 Temperature 98.9 F Pulse Rate 71 51 L 52 L Respiratory 20 22 Rate Blood Pressure 130/82 149/76 O2 Sat by Pulse 87 L 95 Oximetry 02/13/23 08:10 Temperature Pulse Rate 56 L Respiratory Rate Blood Pressure O2 Sat by Pulse Oximetry EKG Findings - EKG Results: EKG: interpreted by ERMD (Left axis. Right bundle branch block. Septal Q waves. Nonspecific ST-T. Previous EKG reviewed dated 11/24/22.), sinus rhythm EKG shows: bradycardia Medical Decision Making - Medical Decision Making Was pt. sent in by a medical professional or institution (, PA, FIELD TALENT QUALIFICATION SPECIALIST, urgent care, hospital, or alf...) When possible be specific @ -No Did you speak to anyone other than the patient for history (EMS, parent, family, police, friend...)? What history was obtained from this source @ -Family is present and helps provide history of patient having a recent sleep study. Did you review nursing and triage notes (agree or disagree)? Why? @ -I reviewed and agree with nursing and triage notes Were old charts reviewed (outside hosp., previous admission, EMS record, old EKG, old radiological studies, urgent care reports/EKG's, alf records)? Report findings @ -Previous labs and EKG reviewed Differential Diagnosis (chest pain, altered mental status, abdominal pain women, abdominal pain men, vaginal bleeding, weakness, fever, dyspnea, syncope, headache, dizziness, GI bleed, back pain, seizure, CVA, palpatations, mental health, musculoskeletal)? @ -Differential Dyspnea: Coronary syndrome, arrhythmia, tamponade, asthma, COPD, pulmonary embolism, pneumonia, pneumothorax, pulmonary effusion, anaphylaxis, diabetic ketoacidosis, flailed chest, pulmonary contusion, diaphragmatic rupture, anemia, neuromuscular, this is not meant to be an all-inclusive list. EKG interpreted by me (3pts min.). @ -As above X-rays interpreted by me (1pt min.). @ -Chest x-ray does show small left effusion. CT interpreted by me (1pt min.). @ -None done U/S interpreted by me (1pt. min.). @ -None done What testing was considered but not performed or refused? (CT, X-rays, U/S, labs)? Why? @ -None What meds were considered but not given or refused? Why? @ -None Did you discuss the management of the patient with other professionals (professionals i.e. , PA, FIELD TALENT QUALIFICATION SPECIALIST, lab, RT, psych nurse, social sciences lecturer, leaf conditioner, teacher, gifts officer, embedded case manager)? Give summary @ -Case was discussed with Dr. Vera who will admit, Dr. Rod to Was smoking cessation discussed for >3mins.? @ -No Was critical care preformed (if so, how long)? @ -No Were there social determinants of health that impacted care today? How? (Homelessness, low income, unemployed, alcoholism, drug addiction, transportation, low edu. Level, literacy, decrease access to med. care, fdc, rehab)? @ -No Was there de-escalation of care discussed even if they declined (Discuss DNR or withdrawal of care, Hospice)? DNR status @ -No What co-morbidities impacted this encounter? (DM, HTN, Smoking, COPD, CAD, Cancer, CVA, ARF, Chemo, Hep., AIDS, mental health diagnosis, sleep apnea, morbid obesity)? @ -None Was patient admitted / discharged? Hospital course, mention meds given and route, prescriptions, significant lab abnormalities, going to OR and other per tinent info. @ -Patient reevaluated. Patient adds that she did have chest discomfort which previously she denied. Patient did desaturate to 87% with ambulation while on oxygen. Patient is updated on results and plan. Patient will be admitted and cardiac enzymes will be run. Admission orders written. Undiagnosed new problem with uncertain prognosis? @ -No Drug Therapy requiring intensive monitoring for toxicity (Heparin, Nitro, Insulin, Cardizem)? @ -No Were any procedures done? @ -No Diagnosis/symptom? @ -COPD, chest pain Acute, or Chronic, or Acute on Chronic? @ -Acute, acute Uncomplicated (without systemic symptoms) or Complicated (systemic symptoms)? @ -default Side effects of treatment? @ -No Exacerbation, Progression, or Severe Exacerbation? @ -Exacerbation of COPD Poses a threat to life or bodily function? How? (Chest pain, USA, ND, pneumonia, PE, COPD, DKA, ARF, appy, cholecystitis, CVA, Diverticulitis, Homicidal, Suicidal, threat to staff... and all critical care pts) @ -No - Lab Data Result diagrams: 02/13/23 07:41 02/13/23 07:41 Lab Results 02/13/23 02/13/23 02/13/23 Range/Units 07:41 07:41 07:41 WBC 10.8 H (3.8-10.6) k/uL RBC 4.42 (3.80-5.40) m/uL Hgb 12.3 (11.4-16.0) gm/dL Hct 39.1 (34.0-46.0) % MCV 88.4 (80.0-100.0) fL MCH 27.9 (25.0-35.0) pg MCHC 31.6 (31.0-37.0) g/dL RDW 15.0 (11.5-15.5) % Plt Count 187 (150-450) k/uL MPV 8.0 Neutrophils % 90 % Lymphocytes % 4 % Monocytes % 5 % Eosinophils % 0 % Basophils % 0 % Neutrophils # 9.7 H (1.3-7.7) k/uL Lymphocytes # 0.4 L (1.0-4.8) k/uL Monocytes # 0.6 (0-1.0) k/uL Eosinophils # 0.0 (0-0.7) k/uL Basophils # 0.0 (0-0.2) k/uL Hypochromasia Slight PT 10.1 (10.0-12.5) sec INR 0.9 (<1.2) APTT 26.1 (22.0-30.0) sec D-Dimer 0.60 H (<0.60) mg/L FEU Sodium 137 (137-145) mmol/L Potassium 4.2 (3.5-5.1) mmol/L Chloride 99 (98-107) mmol/L Carbon Dioxide 34 H (22-30) mmol/L Anion Gap 4 mmol/L BUN 25 H (7-17) mg/dL Creatinine 0.71 (0.52-1.04) mg/dL Est GFR (CKD-EPI)AfAm >90 (>60 ml/min/1.73 sqM) Est GFR (CKD-EPI)NonAf 81 (>60 ml/min/1.73 sqM) Glucose 127 H (74-99) mg/dL Plasma Lactic Acid Deejay (0.7-2.0) mmol/L Calcium 8.8 (8.4-10.2) mg/dL Magnesium 1.7 (1.6-2.3) mg/dL Total Bilirubin 0.7 (0.2-1.3) mg/dL AST 20 (14-36) U/L ALT 17 (4-34) U/L Alkaline Phosphatase 50 (38-126) U/L Troponin I (0.000-0.034) ng/mL NT-Pro-B Natriuret Pep 1010 pg/mL Total Protein 5.7 L (6.3-8.2) g/dL Albumin 3.4 L (3.5-5.0) g/dL Influenza Type A (PCR) (Not Detectd) Influenza Type B (PCR) (Not Detectd) RSV (PCR) (Not Detectd) SARS-CoV-2 (PCR) (Not Detectd) 02/13/23 02/13/23 02/13/23 Range/Units 07:41 07:41 07:41 WBC (3.8-10.6) k/uL RBC (3.80-5.40) m/uL Hgb (11.4-16.0) gm/dL Hct (34.0-46.0) % MCV (80.0-100.0) fL MCH (25.0-35.0) pg MCHC (31.0-37.0) g/dL RDW (11.5-15.5) % Plt Count (150-450) k/uL MPV Neutrophils % % Lymphocytes % % Monocytes % % Eosinophils % % Basophils % % Neutrophils # (1.3-7.7) k/uL Lymphocytes # (1.0-4.8) k/uL Monocytes # (0-1.0) k/uL Eosinophils # (0-0.7) k/uL Basophils # (0-0.2) k/uL Hypochromasia PT (10.0-12.5) sec INR (<1.2) APTT (22.0-30.0) sec D-Dimer (<0.60) mg/L FEU Sodium (137-145) mmol/L Potassium (3.5-5.1) mmol/L Chloride (98-107) mmol/L Carbon Dioxide (22-30) mmol/L Anion Gap mmol/L BUN (7-17) mg/dL Creatinine (0.52-1.04) mg/dL Est GFR (CKD-EPI)AfAm (>60 ml/min/1.73 sqM) Est GFR (CKD-EPI)NonAf (>60 ml/min/1.73 sqM) Glucose (74-99) mg/dL Plasma Lactic Acid Deejay 1.0 (0.7-2.0) mmol/L Calcium (8.4-10.2) mg/dL Magnesium (1.6-2.3) mg/dL Total Bilirubin (0.2-1.3) mg/dL AST (14-36) U/L ALT (4-34) U/L Alkaline Phosphatase (38-126) U/L Troponin I <0.012 (0.000-0.034) ng/mL NT-Pro-B Natriuret Pep pg/mL Total Protein (6.3-8.2) g/dL Albumin (3.5-5.0) g/dL Influenza Type A (PCR) Not Detected (Not Detectd) Influenza Type B (PCR) Not Detected (Not Detectd) RSV (PCR) Not Detected (Not Detectd) SARS-CoV-2 (PCR) Not Detected (Not Detectd) Disposition Clinical Impression: Acute exacerbation of chronic obstructive pulmonary disease, Chest pain Disposition: ADMITTED IP TO THIS HOSP Is patient prescribed a controlled substance at d/c from ED?: No Referrals: Martín Clark DO [Primary Care Provider] - 1-2 days Time of Disposition: 09:26
[2023-02-13 07:52] LABS: Basophils % (A) 0 %; Eosinophils % (A) 0 %; HCT 39.1 % (34.0-46.0); HGB 12.3 gm/dL (11.4-16.0); Hypochromasia Slight; Lymphocytes # (A) 0.4 k/uL (1.0-4.8); Lymphocytes % (A) 4 %; MCH 27.9 pg (25.0-35.0); MCHC 31.6 g/dL (31.0-37.0); MCV 88.4 fL (80.0-100.0); Monocytes # (A) 0.6 k/uL (0-1.0); Monocytes % (A) 5 %; Neutrophils # (A) 9.7 k/uL (1.3-7.7); Neutrophils % (A) 90 %; Platelet Count 187 k/uL (150-450); RBC 4.42 m/uL (3.80-5.40); WBC 10.8 k/uL (3.8-10.6)
[2023-02-13 08:08] LABS: INR 0.9 (<1.2); Partial Thromboplastin Time 26.1 sec (22.0-30.0); Prothrombin Time 10.1 sec (10.0-12.5)
[2023-02-13 08:21] LABS: ALT 17 U/L (4-34); AST 20 U/L (14-36); African American GFR (CKD) >90 (>60 ml/min/1.73 sqM); Albumin 3.4 g/dL (3.5-5.0); Alkaline Phosphatase 50 U/L (38-126); Anion Gap 4 mmol/L; Blood Urea Nitrogen 25 mg/dL (7-17); Calcium 8.8 mg/dL (8.4-10.2); Carbon Dioxide 34 mmol/L (22-30); Chloride 99 mmol/L (98-107); Glucose 127 mg/dL (74-99); Magnesium 1.7 mg/dL (1.6-2.3); Non-African American GFR(CKD) 81 (>60 ml/min/1.73 sqM); Potassium 4.2 mmol/L (3.5-5.1); Sodium 137 mmol/L (137-145); Total Bilirubin 0.7 mg/dL (0.2-1.3); Total Protein 5.7 g/dL (6.3-8.2)
--- NOTE | 2023-02-13 08:25 | XR ---
EXAMINATION TYPE: XR chest 2V DATE OF EXAM: 02/13/2023 8:01 AM CLINICAL INDICATION:Female, 82 years old with history of difficulty breathing; [facility] COMPARISON: Chest radiographs from TECHNIQUE: XR chest 2V Frontal and lateral views of the chest. FINDINGS: Lungs/Pleura: Small left pleural effusion is identified. The right lung is clear. No evidence of pneu mothorax. Pulmonary vascularity: Unremarkable. Heart/mediastinum: Cardiomediastinal silhouette is unremarkable. Musculoskeletal: No acute osseous pathology. IMPRESSION: Small left pleural effusion.
[2023-02-13 08:29] LABS: NT-Pro-B-Type Natriuretic Pept 1010 pg/mL
[2023-02-13] MEDS ORDERED: NITROGLYCERIN SL TABS 0.4 MG TAB SUBLINGUAL PRN (09:26)
[2023-02-13] MEDS ORDERED: ACETAMINOPHEN TAB 325 MG TAB PO PRN (09:26)
[2023-02-13] MEDS ORDERED: methylPREDNISolone SOD SUCCI 125 MG/2 ML VIAL IV STA (09:26)
[2023-02-13] MEDS ORDERED: ASPIRIN 81 MG PO STA (09:26)
[2023-02-13] MEDS ORDERED: NALOXONE 0.4 MG/ML 1 ML VIAL IVP PRN (09:26)
[2023-02-13] MEDS ORDERED: IPRATROPIUM-ALBUTEROL 3 ML NEB INHALATION PRN (09:26)
[2023-02-13] MEDS ORDERED: methylPREDNISolone SOD SUCCI 125 MG/2 ML VIAL IV SCH ×2 (12:00→16:00)
[2023-02-13] MEDS ORDERED: IPRATROPIUM-ALBUTEROL 3 ML NEB INHALATION SCH (12:00)
[2023-02-13] MEDS: METOPROLOL TARTRATE 12.5 MG TAB PO SCH ×2 (12:56→21:09)
[2023-02-13] MEDS: lisinopriL 10 MG TAB PO SCH (12:57)
[2023-02-13] MEDS: APIXABAN 5 MG TAB PO SCH ×2 (12:57→21:09)
[2023-02-13] MEDS: AMIODARONE 200 MG TAB PO SCH (12:57)
[2023-02-13] MEDS: MELOXICAM 7.5 MG TAB PO SCH (12:57)
[2023-02-13] MEDS: LOSARTAN 25 MG TAB PO SCH (12:57)
[2023-02-13] MEDS: ARTIFICIAL TEARS-HYPROMELLOSE DROPS 15 ML BTL BOTH EYES SCH ×3 (12:59→21:10)
--- NOTE | 2023-02-13 14:25 | P.HPIM ---
History of Present Illness H&P Date: 02/13/23 Chief Complaint: Short of breath This is a pleasant 20-year-old patient who follows with . 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 Chronic stable medical conditions include atrial fibrillation, hypertension, osteoarthritis. Does use home oxygen 2 L at baseline. Presents with worsening shortness of breath started yesterday with cough sputum that is of different colors with some chills. Did not take her temperature. Appetite is fair. Patient's chronic lower extremity lymphedema and has a pump at home. A bit tired. Wheezing. Review of systems: GEN.: Tired EYES: None HEENT: None NECK: None RESPIRATORY: As above CARDIOVASCULAR: None GASTROINTESTINAL: None GENITOURINARY: None MUSCULOSKELETAL: Joint pains LYMPHATICS: None HEMATOLOGICAL: None PSYCHIATRY: None NEUROLOGICAL: Does use a walker Past medical history to include: Atrial fibrillation, COPD, hypertension, osteoarthritis, home oxygen 2 L, chronic lower extremity lymphedema Social history: Patient started smoking at age of 21 stop smoking 8 years ago. Pack and a half a day. No alcohol. Lives with her . Physical examination: VITAL SIGNS: 98.9, 71, 20, 1:30/82, 87% on 3 L upon presentation GENERAL: BMI 32.4, declining a bit short of breath. EYES: Pupils equal. Conjunctiva normal. HEENT: External appearance of nose and ears normal, oral cavity grossly normal. NECK: JVD not raised; masses not palpable. HEART: First and second heart sounds are normal; some edema. LUNGS: Respiratory rate increased, diminished breath sounds prolonged expiration and wheezing. ABDOMEN: Soft, nontender, liver spleen not palpable, no masses palpable. PSYCH: Alert and oriented x3; mood and affect normal. MUSCULOSKELETAL:No Clubbing/cyanosis;muscles-grossly intact. OA NEUROLOGICAL: Cranial nerves grossly intact; no facial asymmetry, power and sensation grossly intact. LYMPHATICS: No lymph nodes palpable in the axilla and neck INVESTIGATIONS, reviewed in the clinical context: White count 10.8 hemoglobin 12.3 platelets 187 potassium 4.2 BUN 25 creatinine 0.71 pro BNP 1010 Troponin I less than 0.0122 Influenza type A, B, RSV, COVID: Not detected EKG tracing personally reviewed by me-sinus bradycardia. Rate 53 Chest x-ray film personally reviewed by me-possible infiltrate Assessment and plan: -Probable pneumonia suspect gram-negative organism IV ceftriaxone, by mouth Zithromax. Mucinex. -Acute COPD exacerbation Amanda ex-smoker DuoNeb every 4, nebulized Perforomist and Pulmicort. IV Solu-Medrol -Acute on chronic hypoxic respiratory failure from pneumonia and COPD exacerbation Oxygen supplement CT chest-rule out PE -Primary osteoarthritis Mobic 50 mg a day -Paroxysmal atrial fibrillation currently in sinus rhythm Amiodarone 200 mg day, Lopressor 25 mg twice a day. Eliquis -Essential hypertension Cozaar 25 mg daily, Lopressor -Chronic gait dysfunction uses a walker at baseline -Chronic lymphedema lower extremities Has a pump at home Care was discussed with the patient. Questions answered. Discussed with patient. CT chest rule out PE Given the complexity and severity of patient's condition expect the patient to be in the hospital at least for 2 overnights Past Medical History Past Medical History: Atrial Fibrillation, Asthma, Cancer, COPD, Hypertension, Osteoarthritis (OA) Additional Past Medical History / Comment(s): basal & melanoma skin cancer, spot on kidney (had a little radiation because it can't be bx'd)-watched by oncologist, oxygen at 2 L at HS History of Any Multi-Drug Resistant Organisms: None Reported Past Surgical History: Appendectomy, Cholecystectomy, Joint Replacement, Tonsillectomy Additional Past Surgical History / Comment(s): rectocele and cystocele, total right knee, cataracts Past Anesthesia/Blood Transfusion Reactions: No Reported Reaction, Motion Sickness Smoking Status: Former smoker - Past Family History Son(s) Family Medical History: Cancer Additional Family Medical History / Comment(s): throat cancer Medications and Allergies Home Medications Medication Instructions Recorded Confirmed Type Furosemide [Lasix] 20 mg PO TID 02/09/21 02/13/23 History Meloxicam [Mobic] 15 mg PO DAILY 02/09/21 02/13/23 History Montelukast [Singulair] 10 mg PO HS 02/09/21 02/13/23 History Apixaban [Eliquis] 5 mg PO BID 11/16/22 02/13/23 History Amiodarone [Cordarone] 200 mg PO DAILY #0 11/23/22 02/13/23 Rx Albuterol Inhaler [Ventolin Hfa 1 - 2 puff INHALATION RT-Q6H PRN 02/13/23 02/13/23 History Inhaler] Benzoyl Peroxide 10% Gel 1 applic TOPICAL BID PRN 02/13/23 02/13/23 History Carboxymethylcellulose Sodium 1 drop BOTH EYES TID 02/13/23 02/13/23 History [Refresh Tears] Clindamycin Phosphate [Clindagel 1 applic TOPICAL HS PRN 02/13/23 02/13/23 History 1%] Erythromycin Ophth Oint [Romycin 1 applic BOTH EYES DAILY 02/13/23 02/13/23 Hist ory Ophth Oint] Loratadine 10 mg PO DAILY 02/13/23 02/13/23 History Losartan [Cozaar] 25 mg PO DAILY 02/13/23 02/13/23 History Metoprolol Tartrate [Lopressor] 25 mg PO BID 02/13/23 02/13/23 History ramipriL [Altace] 2.5 mg PO DAILY 02/13/23 02/13/23 History Allergies Allergy/AdvReac Type Severity Reaction Status Date / Time Sulfa (Sulfonamide Allergy Unknown skin red Verified 02/13/23 10:31 Antibiotics) like a sunburn Physical Exam Vitals: Vital Signs Temp Pulse Resp BP Pulse Ox 02/13/23 12:26 70 02/13/23 12:15 69 02/13/23 10:40 96 02/13/23 10:17 98.2 F 53 L 18 141/70 96 02/13/23 09:15 56 L 20 141/62 96 02/13/23 08:10 56 L 02/13/23 07:59 52 L 02/13/23 07:43 51 L 22 149/76 95 02/13/23 07:16 98.9 F 71 20 130/82 87 L Intake and Output 02/12/23 02/13/23 02/13/23 22:59 06:59 14:59 Other: Weight 88.451 kg Results CBC & Chem 7: 02/13/23 07:41 02/13/23 07:41 Labs: Abnormal Lab Results - Last 24 Hours (Table) 02/13/23 02/13/23 02/13/23 Range/Units 07:41 07:41 07:41 WBC 10.8 H (3.8-10.6) k/uL Neutrophils # 9.7 H (1.3-7.7) k/uL Lymphocytes # 0.4 L (1.0-4.8) k/uL D-Dimer 0.60 H (<0.60) mg/L FEU Carbon Dioxide 34 H (22-30) mmol/L BUN 25 H (7-17) mg/dL Glucose 127 H (74-99) mg/dL Total Protein 5.7 L (6.3-8.2) g/dL Albumin 3.4 L (3.5-5.0) g/dL Thrombosis Risk Factor Assmnt - Choose All That Apply Any of the Below Risk Factors Present?: Yes Each Factor Represents 1 point: Abnormal pulmonary function (COPD), Swollen legs (current) Other Risk Factors: Yes Each Risk Factor Represents 3 Points: Age 75 years or older Other congenital or acquired thrombophilia - If yes, enter type in comment: No Thrombosis Risk Factor Assessment Total Risk Factor Score: 5 Thrombosis Risk Factor Assessment Level: High Risk
[2023-02-13] MEDS: methylPREDNISolone SOD SUCCI 40 MG/ML 1 ML VIAL IV SCH ×2 (14:41→21:09)
[2023-02-13] MEDS: AZITHROMYCIN 500 MG TAB PO SCH (14:41)
[2023-02-13] MEDS: IPRATROPIUM-ALBUTEROL 3 ML NEB INHALATION SCH ×2 (15:00→20:11)
[2023-02-13] MEDS: FUROSEMIDE 20 MG TAB PO SCH ×2 (16:42→21:09)
--- NOTE | 2023-02-13 17:45 | CT ---
EXAMINATION TYPE: CT angio chest DATE OF EXAM: 02/13/2023 4:17 PM COMPARISON: None HISTORY: R/O PE. CT DLP: 749 mGycm Automated exposure control for dose reduction was used. CONTRAST: CTA scan of the thorax is performed with IV Contrast, patient injected with 180 ml mL of Isovue 370, pulmonary embolism protocol. 3-D postprocessing was performed.. FINDINGS: There are by basilar infiltrates, left greater than right, suggestive of pneumonia. There is no pleural effusion or pneumothorax. The great vessels the chest are normal is no mediastinal, hilar or axillary adenopathy. There are no filling defects within the pulmonary arteries or branches to suggest pulmonary embolism. Limited scanning the upper abdomen reveals no gross abnormality. There are no focal osseous lesions. IMPRESSION: 1. No evidence of pulmonary embolism. 2. Bibasilar infiltrates, left greater than right, likely indicating pneumonia.
[2023-02-13] MEDS: guaiFENesin 600 MG TABLET.ER PO SCH ×2 (18:34→21:09)
[2023-02-13] MEDS: BUDESONIDE 1 MG/2 ML NEBU INHALATION SCH (20:11)
[2023-02-13] MEDS: FORMOTEROL FUMARATE 20 MCG/2 ML NEBU INHALATION SCH (20:11)
[2023-02-13] MEDS ORDERED: DOXYCYCLINE 100 MG CAP PO SCH (21:00)
[2023-02-13] MEDS: MONTELUKAST 10 MG TAB PO SCH (21:09)
[2023-02-14] MEDS: IPRATROPIUM-ALBUTEROL 3 ML NEB INHALATION SCH ×6 (00:31→20:54)
[2023-02-14] MEDS: methylPREDNISolone SOD SUCCI 40 MG/ML 1 ML VIAL IV SCH ×3 (05:57→21:40)
[2023-02-14] MEDS: METOPROLOL TARTRATE 12.5 MG TAB PO SCH ×2 (08:07→21:39)
[2023-02-14] MEDS: lisinopriL 10 MG TAB PO SCH (08:30)
[2023-02-14] MEDS: guaiFENesin 600 MG TABLET.ER PO SCH ×4 (08:30→21:39)
[2023-02-14] MEDS: LOSARTAN 25 MG TAB PO SCH (08:30)
[2023-02-14] MEDS: APIXABAN 5 MG TAB PO SCH ×2 (08:30→21:40)
[2023-02-14] MEDS: FORMOTEROL FUMARATE 20 MCG/2 ML NEBU INHALATION SCH ×2 (08:44→20:54)
[2023-02-14] MEDS: BUDESONIDE 1 MG/2 ML NEBU INHALATION SCH ×2 (08:44→20:54)
[2023-02-14 08:56] LABS: Chol/HDL Ratio 1.62 Ratio; LDL Cholesterol,Calculated 49.8 mg/dL (0.0-131.0); VLDL Calculation 6.26 mg/dL (5.00-40.00)
[2023-02-14] MEDS: FUROSEMIDE 40 MG TAB PO SCH ×2 (08:58→16:00)
[2023-02-14] MEDS: MELOXICAM 7.5 MG TAB PO SCH (08:58)
[2023-02-14] MEDS: AMIODARONE 200 MG TAB PO SCH (08:58)
[2023-02-14] MEDS: ARTIFICIAL TEARS-HYPROMELLOSE DROPS 15 ML BTL BOTH EYES SCH ×3 (08:58→21:43)
[2023-02-14] MEDS: AZITHROMYCIN 500 MG TAB PO SCH (08:58)
[2023-02-14] MEDS ORDERED: FUROSEMIDE 20 MG TAB PO SCH (09:00)
[2023-02-14] MEDS ORDERED: ASPIRIN 325 MG TAB PO SCH (09:00)
--- NOTE | 2023-02-14 11:06 | P.CRDCN ---
History of Present Illness History of present illness: HISTORY OF PRESENT ILLNESS: This is a 82-year-old female with a past medical history significant for nonischemic cardiomyopathy, atrial fibrillation with cardioversion, hypertension, hyperlipidemia and COPD with home oxygen use. Patient follows in the office with Dr. Cobb. We have been asked to see the patient in consultation for chest pain. Patient examined at the bedside. Patient states Tuesday morning she began to have discomfort on the left side of her chest and also in her left shoulder blade. She also reports feeling short of breath. She checked her oxygen at home and it was noted to be into the 70s. She increased her home oxygen and then came to the hospital for further evaluation. At the time of examination, the patient denies any chest pain or pressure. She reports mild shortness of breath. She continues to have a cough with yellow sputum production. She is being treated for pneumonia. Vital signs are stable. * EKG reveals sinus mechanism with minimal ST elevation in V1V2, seen on previous EKG * Chest xray small left pleural effusion * Chest CTA: Negative for pulmonary embolus and. Bibasilar infiltrates. * Laboratory data: Troponin negative 3. ProBNP 1010. * Most recent echocardiogram obtained in 02/08/2023 in office revealed ejection fraction 50-55%, trace to mild aortic regurgitation, moderate mitral regurgitation, and moderate tricuspid regurgitation * Previous echocardiogram performed in October 2022 revealed ejection fraction of 32%, mild MR, moderate TR * Cardiac catheterization history: January 2021 revealing normal coronary arteries REVIEW OF SYSTEMS: At the time of my exam: CONSTITUTIONAL: Denies fever or chills. HEENT: Denies blurred vision, vision changes, or eye pain. Denies hemoptysis CARDIOVASCULAR: Denies chest pain. Denies orthopnea. Denies PND. Denies palpitations RESPIRATORY: Denies shortness of breath. GASTROINTESTINAL: Denies abdominal pain. Denies nausea or vomiting. HEMATOLOGIC: Denies bleeding disorders. GENITOURINARY: Denies any blood in urine. SKIN: Denies pruitis. Denies rash. PHYSICAL EXAM: VITAL SIGNS: Reviewed. GENERAL: Well-developed in no acute distress. HEENT: Head is normocephalic. Pupils are equal, round. Sclerae anicteric. Mucous membranes of the mouth are moist. Neck supple. No JVD or thyromegaly LUNGS: Respirations even and unlabored. Lungs essentially clear to auscultation bilaterally. HEART: Regular rate and rhythm. S1 and S2 heard. Systolic murmur noted ABDOMEN: Soft. Nondistended. Nontender. EXTREMITIES: Normal range of motion. No clubbing or cyanosis. Peripheral pulses intact. No lower extremity edema NEUROLOGIC: Awake and alert. Oriented x 3. ASSESSMENT: Chest pain, noncardiac, troponin negative 3 Bilateral pneumonia Normal coronary arteries, per cardiac catheterization January 2021 History of nonischemic cardiomyopathy with recovered EF Paroxysmal atrial fibrillation History of cardioversion, October 2022 Chronic hypoxic respiratory failure on home O2 Hypertension Hyperlipidemia PLAN: Acute coronary event has been ruled out Continue treatment of pneumonia per primary medicine Patient states she was taking Lasix 3 times a day at home. Will change dosing to 40 mg twice a day Resume additional cardiac medications No need to repeat echocardiogram as this was performed in the office this month Patient is currently stable from a cardiac standpoint Further recommendations pending patient's course Nurse practitioner note has been reviewed by physician. Signing provider agrees with the documented findings, assessment, and plan of care. Past Medical History Past Medical History: Atrial Fibrillation, Asthma, Cancer, COPD, Hypertension, Osteoarthritis (OA) Additional Past Medical History / Comment(s): basal & melanoma skin cancer, spot on kidney (had a little radiation because it can't be bx'd)-watched by oncologist, oxygen at 2 L at HS History of Any Multi-Drug Resistant Organisms: None Reported Past Surgical History: Appendectomy, Cholecystectomy, Joint Replacement, Tonsillectomy Additional Past Surgical History / Comment(s): rectocele and cystocele, total r ight knee, cataracts Past Anesthesia/Blood Transfusion Reactions: No Reported Reaction, Motion Sickness Smoking Status: Former smoker - Past Family History Son(s) Family Medical History: Cancer Additional Family Medical History / Comment(s): throat cancer Medications and Allergies Home Medications Medication Instructions Recorded Confirmed Type Furosemide [Lasix] 20 mg PO TID 02/09/21 02/13/23 History Meloxicam [Mobic] 15 mg PO DAILY 02/09/21 02/13/23 History Montelukast [Singulair] 10 mg PO HS 02/09/21 02/13/23 History Apixaban [Eliquis] 5 mg PO BID 11/16/22 02/13/23 History Amiodarone [Cordarone] 200 mg PO DAILY #0 11/23/22 02/13/23 Rx Albuterol Inhaler [Ventolin Hfa 1 - 2 puff INHALATION RT-Q6H PRN 02/13/23 02/13/23 History Inhaler] Benzoyl Peroxide 10% Gel 1 applic TOPICAL BID PRN 02/13/23 02/13/23 History Carboxymethylcellulose Sodium 1 drop BOTH EYES TID 02/13/23 02/13/23 History [Refresh Tears] Clindamycin Phosphate [Clindagel 1 applic TOPICAL HS PRN 02/13/23 02/13/23 Hi story 1%] Erythromycin Ophth Oint [Romycin 1 applic BOTH EYES DAILY 02/13/23 02/13/23 History Ophth Oint] Loratadine 10 mg PO DAILY 02/13/23 02/13/23 History Losartan [Cozaar] 25 mg PO DAILY 02/13/23 02/13/23 History Metoprolol Tartrate [Lopressor] 25 mg PO BID 02/13/23 02/13/23 History ramipriL [Altace] 2.5 mg PO DAILY 02/13/23 02/13/23 History Allergies Allergy/AdvReac Type Severity Reaction Status Date / Time Sulfa (Sulfonamide Allergy Unknown skin red Verified 02/13/23 10:31 Antibiotics) like a sunburn Physical Exam Vitals: Vital Signs Temp Pulse Pulse Resp BP BP Pulse Ox 02/14/23 09:11 52 L 02/14/23 09:02 52 L 02/14/23 09:01 52 L 02/14/23 08:45 52 L 02/14/23 07:00 97.6 F 44 L 16 115/69 98 02/14/23 02:09 98.4 F 59 L 15 138/68 98 02/13/23 20:37 62 02/13/23 20:25 60 02/13/23 20:24 60 02/13/23 20:14 58 L 02/13/23 19:05 98.2 F 51 L 15 153/71 95 02/13/23 15:00 97.6 F 67 15 149/73 95 02/13/23 12:26 70 02/13/23 12:15 69 Intake and Output 02/13/23 02/14/23 02/14/23 22:59 06:59 14:59 Intake Total 240 480 Balance 240 480 Intake: Oral 240 480 Other: # Voids 2 2 Results 02/13/23 07:41 02/13/23 07:41 Cardiac Enzymes 02/13/23 02/13/23 Range/Units 11:31 15:34 Troponin I <0.012 <0.012 (0.000-0.034) ng/mL Lipids 02/14/23 Range/Units 05:32 Triglycerides 31.30 (0.00-149.00) mg/dL Cholesterol 146.00 (0.00-200.00) mg/dL HDL Cholesterol 89.90 H (40.00-60.00) mg/dL Cholesterol/HDL Ratio 1.62 Ratio Current Medications Generic Name Dose Route Start Last Admin Trade Name Freq PRN Reason Stop Dose Admin Acetaminophen 650 mg 02/13/23 09:26 Acetaminophen Tab 325 Mg Tab PO Q4HR PRN Mild Pain or Fever > 100.5 Albuterol/Ipratropium 3 ml 02/13/23 09:26 Ipratropium-Albuterol 3 Ml Neb INHALATION RT-Q2H PRN Shortness Of Breath Or Wheezing Albuterol/Ipratropium 3 ml 02/13/23 14:15 02/14/23 08:44 Ipratropium-Albuterol 3 Ml Neb INHALATION 3 ml RT-Q4H ERMIAS Administration Amiodarone HCl 200 mg 02/13/23 12:15 02/14/23 08:58 Amiodarone 200 Mg Tab PO 200 mg DAILY ERMIAS Administration Apixaban 5 mg 02/13/23 12:15 02/14/23 08:30 Apixaban 5 Mg Tab PO 5 mg BID ERMIAS Administration Protocol Artificial Tears 1 drops 02/13/23 12:15 02/14/23 08:58 Artificial Tears-Hypromellose Drops 15 Ml Btl BOTH EYES Not Given TID ERMIAS Azithromycin 500 mg 02/13/23 14:15 02/14/23 08:58 Azithromycin 500 Mg Tab PO 02/15/23 09:01 500 mg DAILY ERMIAS Administration Protocol Budesonide 1 mg 02/13/23 20:00 02/14/23 08:44 Budesonide 1 Mg/2 Ml Nebu INHALATION 1 mg RT-BID ERMIAS Administration Formoterol Fumarate 20 mcg 02/13/23 20:00 02/14/23 08:44 Formoterol Fumarate 20 Mcg/2 Ml Nebu INHALATION 20 mcg RT-BID ERMIAS Administration Furosemide 40 mg 02/14/23 09:00 02/14/23 08:58 Furosemide 40 Mg Tab PO 40 mg BID@0900,1600 [facility] Administration Guaifenesin 600 mg 02/13/23 18:00 02/14/23 08:30 Guaifenesin 600 Mg Tablet.Er PO 600 mg QID ERMIAS Administration Ceftriaxone Sodium 1 gm/ 50 mls @ 100 mls/hr 02/13/23 14:15 02/14/23 08:30 Sodium Chloride IVPB 100 mls/hr Q24HR ERMIAS Administration Protocol Lisinopril 10 mg 02/13/23 12:15 02/14/23 08:30 Lisinopril 10 Mg Tab PO 10 mg DAILY ERMIAS Administration Losartan Potassium 25 mg 02/13/23 12:15 02/14/23 08:30 Losartan 25 Mg Tab PO 25 mg DAILY ERMIAS Administration Meloxicam 15 mg 02/13/23 13:00 02/14/23 08:58 Meloxicam 7.5 Mg Tab PO 15 mg DAILY ERMIAS Administration Methylprednisolone Sodium Succinate 40 mg 02/13/23 14:00 02/14/23 05:57 Methylprednisolone Sod Succi 40 Mg/Ml 1 Ml Vial IV 40 mg Q8H ERMIAS Administration Metoprolol Tartrate 12.5 mg 02/13/23 12:15 02/14/23 08:07 Metoprolol Tartrate 12.5 Mg Tab PO Not Given BID [facility] Montelukast Sodium 10 mg 02/13/23 21:00 02/13/23 21:09 Montelukast 10 Mg Tab PO 10 mg HS ERMIAS Administration Naloxone HCl 0.2 mg 02/13/23 09:26 Naloxone 0.4 Mg/Ml 1 Ml Vial IVP Q2M PRN Opioid Reversal Nitroglycerin 0.4 mg 02/13/23 09:26 Nitroglycerin Sl Tabs 0.4 Mg Tab SUBLINGUAL Q5M PRN Chest Pain Intake and Output 02/13/23 02/14/23 02/14/23 22:59 06:59 14:59 Intake Total 240 480 Balance 240 480 Intake: Oral 240 480 Other: # Voids 2 2 02/13/23 07:41 02/13/23 07:41
--- NOTE | 2023-02-14 14:05 | P.PN ---
Progress Note - Text Progress Note Date: 02/14/23 Chief Complaint: Short of breath This is a pleasant 82-year-old patient who follows with . Also follows with Dr. Richard Perez, target trimmer cough. Chronic stable medical conditions include atrial fibrillation, hypertension, osteoarthritis. Does use home oxygen 2 L at baseline. Presents with worsening shortness of breath started yesterday with cough sputum that is of different colors with some chills. Did not take her temperature. Appetite is fair. Patient's chronic lower extremity lymphedema and has a pump at home. A bit tired. Wheezing. February 14: Patient is having better breathing. Able to been going on sputum. Eating better. Did have the patient sit up in a chair and use incentive spirometry. Continue current treatment. Watch for probably 24 hours. Patient keen to go home. Patient follows with her target trimmer Dr. Richard Perez. Active Medications Acetaminophen (Acetaminophen Tab 325 Mg Tab) 650 mg PO Q4HR PRN PRN Reason: Mild Pain or Fever > 100.5 Albuterol/Ipratropium (Ipratropium-Albuterol 3 Ml Neb) 3 ml INHALATION RT-Q2H PRN PRN Reason: Shortness Of Breath Or Wheezing Albuterol/Ipratropium (Ipratropium-Albuterol 3 Ml Neb) 3 ml INHALATION RT-Q4H [facility] Last Admin: 02/14/23 11:40 Dose: 3 ml Amiodarone HCl (Amiodarone 200 Mg Tab) 200 mg PO DAILY [facility] Last Admin: 02/14/23 08:58 Dose: 200 mg Apixaban (Apixaban 5 Mg Tab) 5 mg PO BID [facility]; Protocol Last Admin: 02/14/23 08:30 Dose: 5 mg Artificial Tears (Artificial Tears-Hypromellose Drops 15 Ml Btl) 1 drops BOTH EYES TID [facility] Last Admin: 02/14/23 08:58 Dose: Not Given Azithromycin (Azithromycin 500 Mg Tab) 500 mg PO DAILY [facility]; Protocol Stop: 02/15/23 09:01 Last Admin: 02/14/23 08:58 Dose: 500 mg Budesonide (Budesonide 1 Mg/2 Ml Nebu) 1 mg INHALATION RT-BID [facility] Last Admin: 02/14/23 08:44 Dose: 1 mg Formoterol Fumarate (Formoterol Fumarate 20 Mcg/2 Ml Nebu) 20 mcg INHALATION RT-BID [facility] Last Admin: 02/14/23 08:44 Dose: 20 mcg Furosemide (Furosemide 40 Mg Tab) 40 mg PO BID@0900,1600 [facility] Last Admin: 02/14/23 08:58 Dose: 40 mg Guaifenesin (Guaifenesin 600 Mg Tablet.Er) 600 mg PO QID [facility] Last Admin: 02/14/23 08:30 Dose: 600 mg Ceftriaxone Sodium 1 gm/ (Sodium Chloride) 50 mls @ 100 mls/hr IVPB Q24HR [facility]; Protocol Last Admin: 02/14/23 08:30 Dose: 100 mls/hr Lisinopril (Lisinopril 10 Mg Tab) 10 mg PO DAILY [facility] Last Admin: 02/14/23 08:30 Dose: 10 mg Losartan Potassium (Losartan 25 Mg Tab) 25 mg PO DAILY [facility] Last Admin: 02/14/23 08:30 Dose: 25 mg Meloxicam (Meloxicam 7.5 Mg Tab) 15 mg PO DAILY [facility] Last Admin: 02/14/23 08:58 Dose: 15 mg Methylprednisolone Sodium Succinate (Methylprednisolone Sod Succi 40 Mg/Ml 1 Ml Vial) 40 mg IV Q8H [facility] Last Admin: 02/14/23 05:57 Dose: 40 mg Metoprolol Tartrate (Metoprolol Tartrate 12.5 Mg Tab) 12.5 mg PO BID [facility] Last Admin: 02/14/23 08:07 Dose: Not Given Montelukast Sodium (Montelukast 10 Mg Tab) 10 mg PO HS [facility] Last Admin: 02/13/23 21:09 Dose: 10 mg Naloxone HCl (Naloxone 0.4 Mg/Ml 1 Ml Vial) 0.2 mg IVP Q2M PRN PRN Reason: Opioid Reversal Nitroglycerin (Nitroglycerin Sl Tabs 0.4 Mg Tab) 0.4 mg SUBLINGUAL Q5M PRN PRN Reason: Chest Pain Past medical history to include: Atrial fibrillation, COPD, hypertension, osteoarthritis, home oxygen 2 L, chronic lower extremity lymphedema Social history: Patient started smoking at age of 21 stop smoking 8 years ago. Pack and a half a day. No alcohol. Lives with her . Physical examination: VITAL SIGNS: 97.6, 52, 16, 1 04/01/1966, 98% on 2 L GENERAL: Sitting on bed, breathing slightly better EYES: Pupils equal. Conjunctiva normal. HEENT: External appearance of nose and ears normal, oral cavity grossly normal. NECK: JVD not raised; masses not palpable. HEART: First and second heart sounds are normal; some edema. LUNGS: Respiratory rate increased, diminished breath sounds, decreased wheezing. ABDOMEN: Soft, nontender, liver spleen not palpable, no masses palpable. PSYCH: Alert and oriented x3; mood and affect normal. MUSCULOSKELETAL:No Clubbing/cyanosis;muscles-grossly intact. OA INVESTIGATIONS, reviewed in the clinical context: CT chest: Negative for PE White count 10.8 hemoglobin 12.3 platelets 187 potassium 4.2 BUN 25 creatinine 0.71 pro BNP 1010 Troponin I less than 0.0122 Influenza type A, B, RSV, COVID: Not detected EKG tracing personally reviewed by me-sinus bradycardia. Rate 53 Chest x-ray film personally reviewed by me-possible infiltrate Assessment and plan: -Probable pneumonia suspect gram-negative organism: Improving IV ceftriaxone, by mouth Zithromax. Mucinex. -Acute COPD exacerbation in a ex-smoker: Some improvement DuoNeb every 4, nebulized Perforomist and Pulmicort. IV Solu-Medrol -Acute on chronic hypoxic respiratory failure from pneumonia and COPD exacerbation Oxygen supplement CT chest-. Ruled out -Primary osteoarthritis Mobic 15 mg a day -Paroxysmal atrial fibrillation currently in sinus rhythm Amiodarone 200 mg day, Lopressor 25 mg twice a day. Eliquis -Essential hypertension Cozaar 25 mg daily, Lopressor -Chronic gait dysfunction uses a walker at baseline -Chronic lymphedema lower extremities Has a pump at home Care was discussed with the patient. Questions answered. Some improvement. Continue current medications. Possible discharge tomorrow. Up in a chair. Incentive spirometry.
[2023-02-14] MEDS: MONTELUKAST 10 MG TAB PO SCH (21:39)
[2023-02-15] MEDS: IPRATROPIUM-ALBUTEROL 3 ML NEB INHALATION SCH ×4 (00:50→12:01)
[2023-02-15] MEDS: methylPREDNISolone SOD SUCCI 40 MG/ML 1 ML VIAL IV SCH (06:07)
--- NOTE | 2023-02-15 08:22 | P.PN ---
Subjective HISTORY OF PRESENT ILLNESS: This is a 82-year-old female with a past medical history significant for nonischemic cardiomyopathy, atrial fibrillation with cardioversion, hypertension, hyperlipidemia and COPD with home oxygen use. Patient follows in the office with Dr. Cobb. We have been asked to see the patient [facility]. Patient examined at the bedside. Patient states Tuesday morning she began to have discomfort on the left side of her chest and also in her left shoulder blade. She also reports feeling short of breath. She checked her oxygen at home and it was noted to be into the 70s. She increased her home oxygen and then came to the hospital for further evaluation. At the time of examination, the patient denies any chest pain or pressure. She reports mild shortness of breath. She continues to have a cough with yellow sputum production. She is being treated for pneumonia. Vital signs are stable. * EKG reveals sinus mechanism with minimal ST elevation in V1V2, seen on previous EKG * Chest xray small left pleural effusion * Chest CTA: Negative for pulmonary embolus and. Bibasilar infiltrates. * Laboratory data: Troponin negative 3. ProBNP 1010. * Most recent echocardiogram obtained in 02/08/2023 in office revealed ejection fraction 50-55%, trace to mild aortic regurgitation, moderate mitral regurgitation, and moderate tricuspid regurgitation * Previous echocardiogram performed in October 2022 revealed ejection fraction of 32%, mild MR, moderate TR * Cardiac catheterization history: January 2021 revealing normal coronary arteries 02/15/2023 Patient examined this morning at the bedside. Patient states she is feeling better this morning. She denies chest pain or pressure. She denies shortness of breath. Vital signs are stable. She is hoping to be discharged home today. PHYSICAL EXAM: VITAL SIGNS: Reviewed. GENERAL: Well-developed in no acute distress. HEENT: Head is normocephalic. Pupils are equal, round. Sclerae anicteric. Mucous membranes of the mouth are moist. Neck supple. No JVD or thyromegaly LUNGS: Respirations even and unlabored. Lungs essentially clear to auscultation bilaterally. HEART: Regular rate and rhythm. S1 and S2 heard. Systolic murmur noted ABDOMEN: Soft. Nondistended. Nontender. EXTREMITIES: Normal range of motion. No clubbing or cyanosis. Peripheral pulses intact. No lower extremity edema NEUROLOGIC: Awake and alert. Oriented x 3. ASSESSMENT: Chest pain, noncardiac, troponin negative 3 Bilateral pneumonia Normal coronary arteries, per cardiac catheterization January 2021 History of nonischemic cardiomyopathy with recovered EF Paroxysmal atrial fibrillation History of cardioversion, October 2022 Chronic hypoxic respiratory failure on home O2 Hypertension Hyperlipidemia PLAN: Continue current cardiac medications Patient is currently stable from a cardiac standpoint We will sign off. Please reconsult if needed. Nurse practitioner note has been reviewed by physician. Signing provider agrees with the documented findings, assessment, and plan of care. Objective - Vital Signs Vital signs: Vital Signs Temp 97.8 F 02/15/23 07:00 Pulse 57 L 02/15/23 07:00 Resp 16 02/15/23 07:00 BP 148/67 02/15/23 07:00 Pulse Ox 99 02/15/23 07:00 FiO2 Intake & Output 02/14/23 02/15/23 02/15/23 18:59 06:59 18:59 Intake Total 716 Balance 716 Intake: Oral 716 Other: # Voids 3 3 - Labs CBC & Chem 7: 02/13/23 07:41 02/13/23 07:41 Labs: Abnormal Lab Results - Last 24 Hours (Table) 02/14/23 Range/Units 05:32 HDL Cholesterol 89.90 H (40.00-60.00) mg/dL
[2023-02-15] MEDS: FORMOTEROL FUMARATE 20 MCG/2 ML NEBU INHALATION SCH (08:42)
[2023-02-15] MEDS: BUDESONIDE 1 MG/2 ML NEBU INHALATION SCH (08:42)
[2023-02-15] MEDS: AMIODARONE 200 MG TAB PO SCH (09:16)
[2023-02-15] MEDS: APIXABAN 5 MG TAB PO SCH (09:17)
[2023-02-15] MEDS: AZITHROMYCIN 500 MG TAB PO SCH (09:19)
[2023-02-15] MEDS: FUROSEMIDE 40 MG TAB PO SCH (09:20)
[2023-02-15] MEDS: guaiFENesin 600 MG TABLET.ER PO SCH (09:20)
[2023-02-15] MEDS: lisinopriL 10 MG TAB PO SCH (09:20)
[2023-02-15] MEDS: LOSARTAN 25 MG TAB PO SCH (09:20)
[2023-02-15] MEDS: MELOXICAM 7.5 MG TAB PO SCH (09:20)
[2023-02-15] MEDS: METOPROLOL TARTRATE 12.5 MG TAB PO SCH (09:22)
[2023-02-15] MEDS: ARTIFICIAL TEARS-HYPROMELLOSE DROPS 15 ML BTL BOTH EYES SCH (09:33)
[2023-02-15 13:47] VITALS: BP 125/74; PULSE 72; RESP 16; TEMP 98
--- NOTE | 2023-02-19 21:52 | P.DS ---
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 Will not require oral antibiotics on discharge as procalcitonin level was negative. Patient will continue on oral steroid taper for the COPD exacerbation. Losartan has been discontinued on discharge. Recommending to see Marketing Business Analyst Dr. IVETH whitney on discharge as well as Dr Cobb dress finisher and Dr. Clark PCP. Given scripts to repeat labs in 2 to 3 days. Hospital Course This is a pleasant 82-year-old patient who follows with . Also follows with Dr. Sanchez/Miguel Whitney, radiologic technology program director. Chronic stable medical conditions include atrial fibrillation, hypertension, osteoarthritis. Does use home oxygen 2 L at baseline. Presents with worsening shortness of breath started yesterday with cough sputum that is of different colors with some chills. Did not take her temperature. Appetite is fair. Patient's chronic lower extremity lymphedema and has a pump at home. Patient is fatigued and complaints of wheezing on admission. Admitted to the hospital under medicine wtih consult placed to cardiology. Covid, Influenza, and RSV are negative. D.Dimer 0.60. White count 10.8. CT chest: Negative for PE. Chest xray on admission shows small left pleural effusion. There was concern for possible pneumonia patient was treated with IV ceftriaxone and PO azithromycin. Had clinical improvement remains on 2L of oxygen. Procalcitonin level 0.04 patient will not require antibiotics on discharge. Cardiology had recommending changing lasix to 40 mg BID. Review of Systems Constitutional: Denied any fatigue denied any fever. Cardio vascular: denied any chest pain, palpitations Gastrointestinal: denied any nausea, vomiting, diarrhea Pulmonary: Denied any shortness of breath cough Neurologic denied any new focal deficits All inpatient medications were reviewed and appropriate changes in these medications as dictated in the interval history and assessment and plan. PHYSICAL EXAMINATION: GENERAL: The patient is alert and oriented x3, not in any acute distress. Well developed, well nourished. HEENT: Pupils are round and equally reacting to light. EOMI. No scleral icterus. No conjunctival pallor. Normocephalic, atraumatic. No pharyngeal erythema. No thyromegaly. CARDIOVASCULAR: S1 and S2 present. No murmurs, rubs, or gallops. PULMONARY: Chest is clear to auscultation, no wheezing or crackles. ABDOMEN: Soft, nontender, nondistended, normoactive bowel sounds. No palpable organomegaly. MUSCULOSKELETAL: No joint swelling or deformity. EXTREMITIES: No cyanosis, clubbing, or pedal edema. NEUROLOGICAL: Gross neurological examination did not reveal any focal deficits. SKIN: No rashes. Please see medication reconciliation for a list of current medications. Thank you for allowing us to participate in the care of this patient. The impression and plan of care has been dictated by Lakeshia Sky, Nurse Practitioner as directed. Dr. Pepper MD I have performed a history and physical examination and medical decision making of this patient, discussed the same with the dictator, and agree with the dictators assessment and plan as written, documented as a scribe. Based on total visit time, I have performed more than 50% of this visit. Patient Condition at Discharge: Good Plan - Discharge Summary Discharge Rx Participant: No New Discharge Prescriptions: New Fluticasone Propionate 44 Mcg [Flovent 44 Mcg Inhaler] 1 puff INHALATION RT- BID #10.6 gm methylPREDNISolone Dose Pack [Medrol Dose Pack] 4 mg PO DIRECTED #1 packet Continue Benzoyl Peroxide 10% Gel 1 applic TOPICAL BID PRN PRN Reason: Acne Albuterol Inhaler [Ventolin Hfa Inhaler] 1 - 2 puff INHALATION RT-Q6H PRN PRN Reason: Shortness Of Breath Metoprolol Tartrate [Lopressor] 25 mg PO BID Loratadine 10 mg PO DAILY Montelukast [Singulair] 10 mg PO HS Furosemide [Lasix] 20 mg PO TID Meloxicam [Mobic] 15 mg PO DAILY Apixaban [Eliquis] 5 mg PO BID Amiodarone [Cordarone] 200 mg PO DAILY #0 Clindamycin Phosphate [Clindagel 1%] 1 applic TOPICAL HS PRN PRN Reason: Acne ramipriL [Altace] 2.5 mg PO DAILY Erythromycin Ophth Oint [Romycin Ophth Oint] 1 applic BOTH EYES DAILY Carboxymethylcellulose Sodium [Refresh Tears] 1 drop BOTH EYES TID Discontinued Losartan [Cozaar] 25 mg PO DAILY Discharge Medication List Furosemide [Lasix] 20 mg PO TID 02/09/21 [History] Meloxicam [Mobic] 15 mg PO DAILY 02/09/21 [History] Montelukast [Singulair] 10 mg PO HS 02/09/21 [History] Apixaban [Eliquis] 5 mg PO BID 11/16/22 [History] Amiodarone [Cordarone] 200 mg PO DAILY #0 11/23/22 [Rx] Albuterol Inhaler [Ventolin Hfa Inhaler] 1 - 2 puff INHALATION RT-Q6H PRN 02/13/23 [History] Benzoyl Peroxide 10% Gel 1 applic TOPICAL BID PRN 02/13/23 [History] Carboxymethylcellulose Sodium [Refresh Tears] 1 drop BOTH EYES TID 02/13/23 [History] Clindamycin Phosphate [Clindagel 1%] 1 applic TOPICAL HS PRN 02/13/23 [History] Erythromycin Ophth Oint [Romycin Ophth Oint] 1 applic BOTH EYES DAILY 02/13/23 [History] Loratadine 10 mg PO DAILY 02/13/23 [History] Metoprolol Tartrate [Lopressor] 25 mg PO BID 02/13/23 [History] ramipriL [Altace] 2.5 mg PO DAILY 02/13/23 [History] Fluticasone Propionate 44 Mcg [Flovent 44 Mcg Inhaler] 1 puff INHALATION RT-BID #10.6 gm 02/15/23 [Rx] methylPREDNISolone Dose Pack [Medrol Dose Pack] 4 mg PO DIRECTED #1 packet 02/15/23 [Rx] Follow up Appointment(s)/Referral(s): Vandana Cobb MD [STAFF PHYSICIAN] - 03/01/23 4:00 pm Martín Clark DO [Primary Care Provider] - 1-2 days Tj Whitney MD [STAFF PHYSICIAN] - 1 Week Ambulatory/Diagnostic Orders: Basic Metabolic Panel [LAB.AMB] Time Frame: 4 Days, Location: None Selected Complete Blood Count w/diff [LAB.AMB] Location: None Selected Patient Instructions/Handouts: COPD (Chronic Obstructive Pulmonary Disease) (DC) Activity/Diet/Wound Care/Special Instructions: Follow up with your radiologic technology program director on discharge in 1 to 2 weeks Continue with albuterol inhaler as needed for shortness of breath/wheezing every 4 to 6 hours Continue flovent inhaler twice a day for the next week, can continue longer if having improvement in overall symptoms. Complete oral steroid taper. Repeat labs in 3 to 4 days Follow up with your PCP DR. Clark Discharge Disposition: HOME WITH HOME HEALTH SERVICES
== END 2023-02-15 14:49 | disposition home health service (06) | DRG 177 ==
LOC: EC 07:14 → 6NMEDSUR 09:29 → OBSVTOIN 14:22
PROVIDERS: ADMIT Hospitalist; ATTEND Hospitalist
DX: J15.69 Pneumonia due to other Gram-negative bacteria (principal); J96.21 Acute and chronic respiratory failure with hypoxia; J44.0 Chronic obstructive pulmonary disease with (acute) lower respiratory infection; I42.8 Other cardiomyopathies; J44.1 Chronic obstructive pulmonary disease with (acute) exacerbation; M19.91 Primary osteoarthritis, unspecified site; I48.0 Paroxysmal atrial fibrillation; Z79.899 Other long term (current) drug therapy; I10 Essential (primary) hypertension; R26.9 Unspecified abnormalities of gait and mobility; I89.0 Lymphedema, not elsewhere classified; E78.5 Hyperlipidemia, unspecified; Z20.822 Contact with and (suspected) exposure to COVID-19; Z79.01 Long term (current) use of anticoagulants; Z79.1 Long term (current) use of non-steroidal anti-inflammatories (NSAID); Z85.828 Personal history of other malignant neoplasm of skin; Z85.820 Personal history of malignant melanoma of skin; Z99.81 Dependence on supplemental oxygen; Z92.3 Personal history of irradiation; Z88.2 Allergy status to sulfonamides; Z90.49 Acquired absence of other specified parts of digestive tract; Z87.19 Personal history of other diseases of the digestive system
CPT/HCPCS: 36415; 71046; 71275; 80053; 80061; 83605; 83735; 83880; 84145; 84484; 85025; 85379; 85610; 85730; 87636; 93005; 94640; 94760; 96374; 99285

== ENCOUNTER → 2023-02-21 | Outpatient (CLI) | payer MEDICARE, BC ==
[2023-02-21 20:58] LABS: Basophils # (A) 0.02 X 10*3/uL (0.00-0.10); Basophils % (A) 0.2 %; Eosinophils # (A) 0 X 10*3/uL (0.04-0.35); Eosinophils % (A) 0 %; HCT 40.1 % (37.2-46.3); HGB 12.1 g/dL (12.0-15.0); Lymphocytes # (A) 1.26 X 10*3/uL (0.90-5.00); Lymphocytes % (A) 13.2 %; MCH 27.3 pg (27.0-32.0); MCHC 30.2 g/dL (32.0-37.0); MCV 90.5 FL (80.0-97.0); Mean Platelet Volume 9.3 FL (9.5-12.2); Monocytes # (A) 1.03 X 10*3/uL (0.20-1.00); Monocytes % (A) 10.8 %; NRBC Per 100 WBC 0 X 10*3/uL (0.00-0.01); Neutrophils # (A) 6.82 X 10*3/uL (1.80-7.70); Neutrophils % (A) 71.6 %; Platelet Count 355 X 10*3/uL (140-440); RBC 4.43 X 10*6/uL (4.10-5.20); RDW 14.9 % (11.5-14.5); WBC 9.53 X 10*3/uL (4.50-10.00)
[2023-02-21 21:19] LABS: Calcium 9.1 mg/dL (8.7-10.3); Carbon Dioxide 36.9 mmol/L (21.6-31.8); Chloride 98 mmol/L (96-109); Glucose 95 mg/dL (70-110); Potassium 4.7 mmol/L (3.5-5.5); Sodium 143 mmol/L (135-145)
== END | disposition home or self-care (01) ==
LOC: LABWHC1 14:08
PROVIDERS: ATTEND Nurse Practitioner Family
DX: J44.1 Chronic obstructive pulmonary disease with (acute) exacerbation (principal)
CPT/HCPCS: 36415; 80048; 85025

== ENCOUNTER → 2023-07-12 | Outpatient (CLI) | payer MEDICARE, BC ==
[2023-07-12 16:27] LABS: ALT 29 U/L (8-44); AST 19 U/L (13-35); Albumin 3.6 g/dL (3.8-4.9); Albumin/Globulin Ratio 1.89 Ratio (1.60-3.17); Alkaline Phosphatase 63 U/L (41-126); BUN/Creat Ratio 26.43 Ratio (12.00-20.00); Blood Urea Nitrogen 18.5 mg/dL (9.0-27.0); Calcium 9.6 mg/dL (8.7-10.3); Carbon Dioxide 36.8 mmol/L (21.6-31.8); Chloride 99 mmol/L (96-109); Globulin 1.9 g/dL (1.6-3.3); Glucose 117 mg/dL (70-110); Potassium 4.1 mmol/L (3.5-5.5); Sodium 145 mmol/L (135-145); Total Bilirubin 0.4 mg/dL (0.3-1.2); Total Protein 5.5 g/dL (6.2-8.2)
== END | disposition home or self-care (01) ==
LOC: LABWHC1 12:32
PROVIDERS: ATTEND Internal Medicine Interventional Cardiology
DX: I48.11 Longstanding persistent atrial fibrillation (principal); I42.8 Other cardiomyopathies
CPT/HCPCS: 36415; 80053; 84443

== ENCOUNTER → 2023-08-12 | Outpatient (CLI) | payer MEDICARE, BC ==
[2023-08-12 21:15] LABS: ALT 16 U/L (8-44); AST 18 U/L (13-35); Albumin 3.7 g/dL (3.8-4.9); Albumin/Globulin Ratio 2.06 Ratio (1.60-3.17); Alkaline Phosphatase 47 U/L (41-126); BUN/Creat Ratio 31.12 Ratio (12.00-20.00); Blood Urea Nitrogen 24.9 mg/dL (9.0-27.0); Calcium 9.2 mg/dL (8.7-10.3); Carbon Dioxide 30.7 mmol/L (21.6-31.8); Chloride 101 mmol/L (96-109); Globulin 1.8 g/dL (1.6-3.3); Glucose 116 mg/dL (70-110); Potassium 3.8 mmol/L (3.5-5.5); Sodium 144 mmol/L (135-145); Total Bilirubin 0.3 mg/dL (0.3-1.2); Total Protein 5.5 g/dL (6.2-8.2)
== END | disposition home or self-care (01) ==
LOC: LABWHC1 13:04
PROVIDERS: ATTEND Internal Medicine Interventional Cardiology
DX: R06.02 Shortness of breath (principal)
CPT/HCPCS: 36415; 80053

== ENCOUNTER → 2023-10-18 | Outpatient (CLI) | payer MEDICARE, BC ==
[2023-10-18 21:42] LABS: BUN/Creat Ratio 25.62 Ratio (12.00-20.00); Blood Urea Nitrogen 20.5 mg/dL (9.0-27.0); Carbon Dioxide 32.9 mmol/L (21.6-31.8); Chloride 100 mmol/L (96-109); Glucose 102 mg/dL (70-110); NT-Pro-B-Type Natriuretic Pept 4815 pg/mL (0-450); Potassium 4.4 mmol/L (3.5-5.5); Sodium 143 mmol/L (135-145)
[2023-10-18 21:43] LABS: ALT 30 U/L (8-44); AST 28 U/L (13-35); Albumin 3.8 g/dL (3.8-4.9); Albumin/Globulin Ratio 2.11 Ratio (1.60-3.17); Alkaline Phosphatase 57 U/L (41-126); Calcium 9.2 mg/dL (8.7-10.3); Globulin 1.8 g/dL (1.6-3.3); Total Bilirubin 0.4 mg/dL (0.3-1.2); Total Protein 5.6 g/dL (6.2-8.2)
== END | disposition home or self-care (01) ==
LOC: LABWHC1 11:38
PROVIDERS: ATTEND Internal Medicine Interventional Cardiology
DX: I42.8 Other cardiomyopathies (principal)
CPT/HCPCS: 36415; 80053; 83880

== ENCOUNTER → 2023-12-30 | Outpatient (CLI) | payer MEDICARE, BC ==
[2023-12-30 20:39] LABS: BUN/Creat Ratio 23.75 Ratio (12.00-20.00); Calcium 9.3 mg/dL (8.7-10.3); Carbon Dioxide 31.4 mmol/L (21.6-31.8); Chloride 101 mmol/L (96-109); Glucose 118 mg/dL (70-110); Potassium 3.9 mmol/L (3.5-5.5); Sodium 143 mmol/L (135-145)
[2023-12-30 21:45] LABS: NT-Pro-B-Type Natriuretic Pept 2068 pg/mL (0-450)
== END | disposition home or self-care (01) ==
LOC: LABWHC1 13:47
PROVIDERS: ATTEND Nurse Practitioner Adult Health
DX: I50.32 Chronic diastolic (congestive) heart failure (principal)
CPT/HCPCS: 36415; 80048; 83880

== ENCOUNTER → 2024-02-27 | Outpatient (CLI) | payer MEDICARE, BC ==
[2024-02-27 22:25] LABS: NT-Pro-B-Type Natriuretic Pept 1145 pg/mL (0-450)
[2024-02-27 22:28] LABS: ALT 14 U/L (8-44); AST 18 U/L (13-35); Albumin 3.9 g/dL (3.8-4.9); Albumin/Globulin Ratio 1.86 Ratio (1.60-3.17); Alkaline Phosphatase 71 U/L (41-126); BUN/Creat Ratio 23.22 Ratio (12.00-20.00); Blood Urea Nitrogen 20.9 mg/dL (9.0-27.0); Calcium 9.5 mg/dL (8.7-10.3); Chloride 98 mmol/L (96-109); Globulin 2.1 g/dL (1.6-3.3); Glucose 100 mg/dL (70-110); Potassium 4.6 mmol/L (3.5-5.5); Sodium 141 mmol/L (135-145); Total Bilirubin 0.3 mg/dL (0.3-1.2)
== END | disposition home or self-care (01) ==
LOC: LABWHC1 14:58
PROVIDERS: ATTEND Internal Medicine Interventional Cardiology
DX: I42.8 Other cardiomyopathies (principal)
CPT/HCPCS: 36415; 80053; 83880